=== PATIENT | male | born 1960 | race Caucasian/White ===

== ENCOUNTER 2016-08-03 14:46 | Emergency (ER) | payer MEDICAID ==
[~2016-08-03 14:46] MED LIST: /LOR25TA PO; ATOR40TA PO; CRES20TA OR; CRES5TAB OR; GABA300C3 PO; GABA600T3 PO; IBUP400T PO; IBUP80TA PO; LYRI150C OR; LYRI300C PO; NEXI20CA OR; OMEP40CA2 PO; VICO5TAB16 PO
[2016-08-03 15:51] LABS: BASO % 0.4 % (0.0-1.0); EOS # 0.2 K/mm3 (0.0-0.50); EOS % 2.2 % (0.0-3.0); LARGE UNSTAINED CELL # 0.1 K/mm3 (0.0-0.4); LARGE UNSTAINED CELL % 1.8 % (0.0-4.0); LYMPH # 2.4 K/mm3 (1.5-4.5); LYMPH % 28.3 % (24.0-44.0); MEAN CORPUSCULAR HEMOGLOBIN 32.1 pg (27.0-33.0); MEAN CORPUSCULAR HGB CONC 34.3 g/dl (32.0-36.5); MEAN CORPUSCULAR VOLUME 93.6 fl (80.0-96.0); MONO # 0.6 K/mm3 (0.0-0.8); MONO % 7.3 % (0.0-5.0); NEUTROPHILS # 4.7 K/mm3 (1.8-7.7); NEUTROPHILS % 60.1 % (36.0-66.0); PLATELET COUNT, AUTOMATED 258 k/mm3 (150-450); RED CELL DISTRIBUTION WIDTH 13.7 % (11.5-14.5); WHITE BLOOD COUNT 7.8 K/mm3 (4.0-10.0)
[2016-08-03] MEDS ORDERED: GI COCKTAIL 50ML BTL(HYOSCYAMINE/MAALOX/LIDOCAINE VISCOUS)(1:3:1) As Ordered ONE (15:51)
[2016-08-03] MEDS ORDERED: ASPIRIN 81 MG CHEW TABLET As Ordered ONE (15:51)
--- NOTE | 2016-08-03 15:57 | REP ---
Clinical: Chest pain . Comparison: 05/21/2016. Technique: PA and lateral. Findings: The mediastinum and cardiac silhouette are normal. The lung harden are clear and without acute consolidation, effusion, or pneumothorax. The skeletal structures are intact and normal. Impression: 1. No acute cardiopulmonary process. Signed by Obie Klein MD 08/03/2016 03:49 P
[2016-08-03 15:58] LABS: ANION GAP 7 MEQ/L (8-16); BLOOD UREA NITROGEN 9 MG/DL (7-18); CALCIUM LEVEL 8.9 MG/DL (8.5-10.1); CARBON DIOXIDE LEVEL 28 MEQ/L (21-32); CHLORIDE LEVEL 108 MEQ/L (98-107); CREATININE FOR GFR 0.98 MG/DL (0.70-1.30); GLOMERULAR FILTRATION RATE > 60.0 (>56); GLUCOSE, FASTING 145 MG/DL (70-105); POTASSIUM SERUM 3.4 MEQ/L (3.5-5.1); SODIUM LEVEL 143 MEQ/L (136-145)
--- NOTE | 2016-08-03 16:31 | EDDOCDS ---
Nurse's Notes [facility] Name: Herbert Tanner Age: 55 yrs Sex: Male : 1960 Arrival Date: 08/03/2016 Time: 14:46 Bed 5 Private MD: Meri Barrios C Diagnosis: Chest pain, unspecified Presentation: 08/03 14:54 Presenting complaint: Patient states: Substernal chest pain began yesterday worse at mlb1 times intermittently radiates to left arm. Aspirin was not taken prior to arrival. Adult Sepsis Screening: The patient does not have new or worsening altered mentation. Patient's respiratory rate is less than 22. Systolic blood pressure is greater than 100. Patient has a qSOFA score of 0- Negative Sepsis Screen. Suicide/Homicide risk assessment- the patient denies having any suicidal and/or homicidal ideations and does not present with any other emotional, behavioral or mental health complaints. 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 Transition of care: patient was not received from another setting of care. 14:54 Acuity: DARLENE Level 2 mlb1 14:54 Method Of Arrival: Walkin/Carried/Asstd mlb1 Triage Assessment: 14:59 General: Appears in no apparent distress, Behavior is appropriate for age, cooperative. mlb1 Pain: Location: mid-sternal area Pain currently is 8 out of 10 on a pain scale. HIV screening NA for this visit Offered previously. Historical: - Allergies: none; - Home Meds: 1. gabapentin 800 mg Oral tab 1 tab 3 times per day 2. hydrocodone-acetaminophen 10-325 mg Oral tab 1 tab every 6 hours 3. Lyrica 300MG Oral 2 times per day 4. Motrin Oral 800 mg as needed 5. Ambien 10 mg Oral tab 1 tab once daily 6. atorvastatin 40 mg oral tab 1 tab once daily - PMHx: back pain; DDD; Diverticulitis; GERD; Hypercholesterolemia; Hypertension; - PSHx: none; - Social history: Smoking status: Patient uses tobacco products, heavy tobacco smoker. No barriers to communication noted, The patient speaks fluent Uzbek, Speaks appropriately for age. - : The pt / caregiver states he / she is not on anticoagulants. Home medication list is obtained from the patient. - Exposure Risk Screening:: None identified. Screenin:11 Screening information is obtained from the patient. Fall risk: No risks identified. hs1 Assistance ADL's: requires no assistance with activities of daily living. Abuse/DV Screen: The patient / caregiver reports he/she is: not in a situation that causes fear, pain or injury. Nutritional screening: No deficits noted. Advance Directives: There is no active DNR order. home support is adequate. Assessment: 15:13 General: Behavior is appropriate for age, cooperative. Neurological: Oriented to hs1 person, place, time. Cardiovascular: Rhythm is sinus rhythm No ectopy. Respiratory: Airway is patent Respiratory effort is even, unlabored, Respiratory pattern is regular, symmetrical. Derm: Skin is pink, warm & dry. normal. 16:06 General: Appears in no apparent distress, comfortable, Behavior is appropriate for age, hs1 cooperative. Pain: Location: chest. Cardiovascular: Rhythm is sinus rhythm No ectopy. Respiratory: No deficits noted. Airway is patent Respiratory effort is even, unlabored. Derm: Skin is pink, warm & dry. normal. 16:28 Reassessment: Patient appears in no apparent distress at this time. Patient states hs1 feeling better. Patient states symptoms have improved. Vital Signs: 14:48 BP 123 / 76; Pulse 82; Resp 18 S; Temp 96.3(O); Pulse Ox 96% on R/A; Weight 79.38 kg gr2 (R); Height 5 ft. 10 in. (177.80 cm) (R); Pain 8/10; 14:54 BP 126 / 72 (auto/); hs1 14:58 Pulse 80 MON; Resp 18; Pulse Ox 95% ; hs1 15:09 BP 134 / 75 (auto/); hs1 15:09 Pulse 76 MON; Resp 18; Pulse Ox 93% ; hs1 15:54 BP 133 / 68 (auto/); hs1 15:54 Pulse 74 MON; Pulse Ox 94% ; hs1 16:09 BP 124 / 71 (auto/); hs1 16:09 Pulse 66 MON; Pulse Ox 94% ; hs1 16:24 BP 119 / 68 (auto/); hs1 16:24 Pulse 66 MON; Resp 18; Temp 97.6(O); Pulse Ox 94% ; Pain 2/10; hs1 14:48 Body Mass Index 25.11 (79.38 kg, 177.80 quita) gr2 Vitals: 14:48 Log In Time: August 03, 2016 at 14:48. RN notified that patient meets Red Flag gr2 criteria. ED Course: 14:47 Patient visited by Kirill Landeros. gr2 14:47 Meri Barrios is Private Physician. gr2 14:47 Patient moved to Waiting gr2 14:50 Patient visited by Kirill Landeros. gr2 14:51 Patient moved to 5 mlb1 14:55 Triage Initiated mlb1 15:00 Patient visited by Giovanny Vann RN. mlb1 15:09 Patient visited by Antonio Rodríguze. jml1 15:09 EKG done. (by ED staff). Reviewed by Harinder FLANAGAN. jml1 15:12 Inserted saline lock: 18 gauge in left antecubital area and blood collected. The hs1 patient tolerated the procedure well. 15:22 [facility] F[facility]. ke 15:23 Patient visited by Harinder Raza FNP. ke 15:23 Patient visited by Harinder Raza FNP. ke 15:51 Patient visited by Harinder Raza FNP. ke 15:59 [facility] [place] Agreement was scanned into [employer] and attached to record. gjb 16:05 Patient visited by Carola Martínez RN. hs1 16:20 Meri Barrios is Referral Physician. ke 16:28 Discontinued IV lock intact, bleeding controlled, pressure dressing applied, No hs1 redness/swelling at site. No procedures done that require assistance. 16:29 The patient / caregiver is instructed regarding the plan of care and ED course. hs1 Administered Medications: 15:54 Drug: GI Cocktail - (Alum-Mag Hydroxide-Simeth Suspension 225 mg-200 mg-25 mg/5 mL 30 hs1 ml, Lidocaine Liquid 2 % 10 ml, Hyoscyamine Liquid 10 ml) Route: PO; 15:55 Drug: Aspirin 324 mg [aspirin 81 mg chewable tablet (4 tabs)] Route: PO; hs1 Order Results: Lab Order: Basic Metabolic Profile; SPEC'M 08/03/16 15:06 Test: GLUCOSE, FASTING; Value: 145; Range: 70-105; Abnormal: Above high normal; Units: MG/DL; Status: F Test: BLOOD UREA NITROGEN; Value: 9; Range: 7-18; Units: MG/DL; Status: F Test: CREATININE FOR GFR; Value: 0.98; Range: 0.70-1.30; Units: MG/DL; Status: F Test: GLOMERULAR FILTRATION RATE; Value: > 60.0; Range: >56; Status: F Test: SODIUM LEVEL; Value: 143; Range: 136-145; Units: MEQ/L; Status: F Test: POTASSIUM SERUM; Value: 3.4; Range: 3.5-5.1; Abnormal: Below low normal; Units: MEQ/L; Status: F Test: CHLORIDE LEVEL; Value: 108; Range: 98-107; Abnormal: Above high normal; Units: MEQ/L; Status: F Test: CARBON DIOXIDE LEVEL; Value: 28; Range: 21-32; Units: MEQ/L; Status: F Test: ANION GAP; Value: 7; Range: 8-16; Abnormal: Below low normal; Units: MEQ/L; Status: F Test: CALCIUM LEVEL; Value: 8.9; Range: 8.5-10.1; Units: MG/DL; Status: F Test Note: ; Units are mL/min/1.73 m2 Chronic Kidney Disease Staging per NKF: Stage I & II GFR >=60 Normal to Mildly Decreased Stage III GFR 30-59 Moderately Decreased Stage IV GFR 15-29 Severely Decreased Stage V GFR <15 Very Little GFR Left ESRD GFR <15 on DEBONE SUPERVISOR Lab Order: CBC with Diff; SPEC'M 08/03/16 15:06 Test: WHITE BLOOD COUNT; Value: 7.8; Range: 4.0-10.0; Units: K/mm3; Status: F Test: RED BLOOD COUNT; Value: 4.82; Range: 4.30-6.10; Units: M/mm3; Status: F Test: HEMOGLOBIN; Value: 15.5; Range: 14.0-18.0; Units: g/dl; Status: F Test: HEMATOCRIT; Value: 45.1; Range: 42.0-52.0; Units: %; Status: F Test: MEAN CORPUSCULAR VOLUME; Value: 93.6; Range: 80.0-96.0; Units: fl; Status: F Test: MEAN CORPUSCULAR HEMOGLOBIN; Value: 32.1; Range: 27.0-33.0; Units: pg; Status: F Test: MEAN CORPUSCULAR HGB CONC; Value: 34.3; Range: 32.0-36.5; Units: g/dl; Status: F Test: RED CELL DISTRIBUTION WIDTH; Value: 13.7; Range: 11.5-14.5; Units: %; Status: F Test: PLATELET COUNT, AUTOMATED; Value: 258; Range: 150-450; Units: k/mm3; Status: F Test: NEUTROPHILS %; Value: 60.1; Range: 36.0-66.0; Units: %; Status: F Test: LYMPH %; Value: 28.3; Range: 24.0-44.0; Units: %; Status: F Test: MONO %; Value: 7.3; Range: 0.0-5.0; Abnormal: Above high normal; Units: %; Status: F Test: EOS %; Value: 2.2; Range: 0.0-3.0; Units: %; Status: F Test: BASO %; Value: 0.4; Range: 0.0-1.0; Units: %; Status: F Test: LARGE UNSTAINED CELL %; Value: 1.8; Range: 0.0-4.0; Units: %; Status: F Test: NEUTROPHILS #; Value: 4.7; Range: 1.8-7.7; Units: K/mm3; Status: F Test: LYMPH #; Value: 2.4; Range: 1.5-4.5; Units: K/mm3; Status: F Test: MONO #; Value: 0.6; Range: 0.0-0.8; Units: K/mm3; Status: F Test: EOS #; Value: 0.2; Range: 0.0-0.50; Units: K/mm3; Status: F Test: BASO #; Value: 0.0; Range: 0.0-0.2; Units: K/mm3; Status: F Test: LARGE UNSTAINED CELL #; Value: 0.1; Range: 0.0-0.4; Units: K/mm3; Status: F Lab Order: Cardiac Injury Profile; SPEC'M 08/03/16 15:06 Test: CPK CREATINE PHOSPHOKINASE; Value: 96; Range: 39-308; Units: U/L; Status: F Test: CK-MB VALUE MASS; Value: 1.2; Range: 0.0-3.6; Units: NG/ML; Status: F Test: MB/CK RELATIVE INDEX; Value: 1.25; Range: < OR =4; Status: F Test Note: ; DIAGNOSIS CRITERIA MMB ng/ml Relative Index (RI) NON-AMI < or = 5 N/A AYN ZONE > 5 < or = 4 AMI > 5 > 4 Lab Order: Troponin; SPEC'M 08/03/16 15:06 Test: TROPONIN I; Value: < 0.02; Range: < 0.10; Units: NG/ML; Status: F Test Note: ; Troponin I Reference Interval for [facility] LOCI: 99th Percentile= 0.00-0.045 ng/ml Risk Stratification: <= 0.10 ng/ml Decreased Risk for Adverse Clinical Events. 0.10-1.50 ng/ml Increased Risk for Adverse Clinical Events. Evaluation of additional criterion and/or repeat testing in 2-6 hours is suggested to rule out myocardial damage. >= 1.50 ng/ml Indicative of Myocardial Injury. Outcome: 16:21 Patient left against medical advice. 16:29 Discharge Assessment: Patient awake, alert and oriented x 3. No cognitive and/or hs1 functional deficits noted. Patient verbalized understanding of disposition instructions. patient administered narcotics - no. The following High Risk Discharge criteria are identified: Yes, AMA - explained the risks and benefits. The patient is leaving AMA: AMA form signed. Condition: stable. Discharge instructions given to patient, Instructed on discharge instructions, follow up and referral plans. medication usage, Demonstrated understanding of instructions, medications, Pt was receptive of discharge instructions/ teaching. Prescriptions given X 1. No special radiology studies were completed. Property sent home with patient. 16:30 Patient left the ED. hs1 Signatures: Harinder Raza, ESTHETIC DERMATOLOGIST Giovanny Maloney RN RN mlb1 Carola Martínez RN RN hs1 Anotnio Rodríguez jml1 Kirill Landeros gr2 Joya Kay MTDD
--- NOTE | 2016-08-03 16:31 | EDDOCDS ---
Physician Documentation [facility] Name: Herbert Tanner Age: 55 yrs Sex: Male : 1960 Arrival Date: 08/03/2016 Time: 14:46 Bed 5 Private MD: Meri Barrios C Disposition: 08/03/16 16:21 Patient has left against medical advice. Impression: Chest pain, unspecified. - Patients states they are going to Home/Self Care. - Condition is Unknown. - Discharge Instructions: Nonspecific Chest Pain. - Prescriptions for Aspirin 81 mg - take 1 tablet by ORAL route once daily; 90 tablet. Medication Reconciliation, Local Pharmacy Hours form. Follow up: Meri Barrios; When: Tomorrow; Reason: Continuance of care. - Problem is new. - Symptoms are unchanged. Historical: - Allergies: none; - Home Meds: 1. gabapentin 800 mg Oral tab 1 tab 3 times per day 2. hydrocodone-acetaminophen 10-325 mg Oral tab 1 tab every 6 hours 3. Lyrica 300MG Oral 2 times per day 4. Motrin Oral 800 mg as needed 5. Ambien 10 mg Oral tab 1 tab once daily 6. atorvastatin 40 mg oral tab 1 tab once daily - PMHx: back pain; DDD; Diverticulitis; GERD; Hypercholesterolemia; Hypertension; - PSHx: none; - Social history: Smoking status: Patient uses tobacco products, heavy tobacco smoker. No barriers to communication noted, The patient speaks fluent Welsh, Speaks appropriately for age. - : The pt / caregiver states he / she is not on anticoagulants. Home medication list is obtained from the patient. - Exposure Risk Screening:: None identified. Vital Signs: 08/03 14:48 BP 123 / 76; Pulse 82; Resp 18 S; Temp 96.3(O); Pulse Ox 96% on R/A; Weight 79.38 kg / gr2 175 lbs (R); Height 5 ft. 10 in. (177.80 cm) (R); Pain 8/10; 14:54 BP 126 / 72 (auto/); hs1 14:58 Pulse 80 MON; Resp 18; Pulse Ox 95% ; hs1 15:09 BP 134 / 75 (auto/); hs1 15:09 Pulse 76 MON; Resp 18; Pulse Ox 93% ; hs1 15:54 BP 133 / 68 (auto/); hs1 15:54 Pulse 74 MON; Pulse Ox 94% ; hs1 16:09 BP 124 / 71 (auto/); hs1 16:09 Pulse 66 MON; Pulse Ox 94% ; hs1 16:24 BP 119 / 68 (auto/); hs1 16:24 Pulse 66 MON; Resp 18; Temp 97.6(O); Pulse Ox 94% ; Pain 2/10; hs1 14:48 Body Mass Index 25.11 (79.38 kg, 177.80 cm) gr2 MDM: 15:06 ECG WITH READING ER PHYS+CARDIAG ordered. EDMS 15:35 Aspirin Chewable Tablet 324 mg PO once ordered. ke 15:35 Aviation Project Manager/Pulse Ox/q 30 min VS ordered. ke 15:35 IV Saline Lock ordered. ke 15:35 Rhythm Strip to chart ordered. ke 15:35 Undress patient appropriately for examination ordered. ke 15:35 Basic Metabolic Profile Ordered. EDMS 15:35 CBC with Diff Ordered. EDMS 15:35 Cardiac Injury Profile Ordered. EDMS 15:35 Troponin Ordered. EDMS 15:37 Chest, 2 View (pa\E\lat) Ordered. EDMS 15:38 GI Cocktail - (Alum-Mag Hydroxide-Simeth 30 ml, Lidocaine 10 ml, Hyoscyamine 10 ml) PO ke once; Pre-mixed 50mL unit dose ordered. 15:44 Financial registration complete. gjb 15:59 [facility] Payment Agreement was scanned into [employer] and attached to record. gjb 16:06 Basic Metabolic Profile Reviewed. ke 16:06 CBC with Diff Reviewed. ke 16:06 Cardiac Injury Profile Reviewed. ke 16:06 Troponin Reviewed. ke 16:10 Redraw CIP &Troponin (put time in details section) ordered. ke 16:10 Repeat EKG (put time details section) ordered. ke 16:28 Repeat EKG (put time details section) complete. lbd 16:28 Redraw CIP &Troponin (put time in details section) complete. lbd 16:30 CARDIAC MARKER PANEL Ordered. EDMS Administered Medications: 15:54 Drug: GI Cocktail - (Alum-Mag Hydroxide-Simeth Suspension 225 mg-200 mg-25 mg/5 mL 30 hs1 ml, Lidocaine Liquid 2 % 10 ml, Hyoscyamine Liquid 10 ml) Route: PO; 15:55 Drug: Aspirin 324 mg [aspirin 81 mg chewable tablet (4 tabs)] Route: PO; hs1 Signatures: Dispatcher [employer] EDMS Ana Laura Snyder, Manager Organizational Unit lbd Harinder Raza FNP FNP ke Barney, Michael B RN RN mlb1 Carola Martínez RN RN hs1 Joya Kay The chart was reviewed and I authenticate all verbal orders and agree with the evaluation and treatment provided.Attachments: 15:59 [facility] Payment Agreement litzy MTDD
--- NOTE | 2016-08-03 18:21 | ECGEPIP ---
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
--- NOTE | 2016-08-05 17:31 | EDDOCDS ---
Nurse's Notes [facility] Name: Taran Tanner Age: 55 yrs Sex: Male : 1960 Arrival Date: 08/03/2016 Time: 14:46 Bed 5 Private MD: Meri Barrios C Diagnosis: Chest pain, unspecified Presentation: 08/03 14:54 Presenting complaint: Patient states: Substernal chest pain began yesterday worse at mlb1 times intermittently radiates to left arm. Aspirin was not taken prior to arrival. Adult Sepsis Screening: The patient does not have new or worsening altered mentation. Patient's respiratory rate is less than 22. Systolic blood pressure is greater than 100. Patient has a qSOFA score of 0- Negative Sepsis Screen. Suicide/Homicide risk assessment- the patient denies having any suicidal and/or homicidal ideations and does not present with any other emotional, behavioral or mental health complaints. Status: Patient is not a client service professional or dependent. Transition of care: patient was not received from another setting of care. 14:54 Acuity: DARLENE Level 2 mlb1 14:54 Method Of Arrival: Walkin/Carried/Asstd mlb1 Triage Assessment: 14:59 General: Appears in no apparent distress, Behavior is appropriate for age, cooperative. mlb1 Pain: Location: mid-sternal area Pain currently is 8 out of 10 on a pain scale. HIV screening NA for this visit Offered previously. Historical: - Allergies: none; - Home Meds: 1. gabapentin 800 mg Oral tab 1 tab 3 times per day 2. hydrocodone-acetaminophen 10-325 mg Oral tab 1 tab every 6 hours 3. Lyrica 300MG Oral 2 times per day 4. Motrin Oral 800 mg as needed 5. Ambien 10 mg Oral tab 1 tab once daily 6. atorvastatin 40 mg oral tab 1 tab once daily - PMHx: back pain; DDD; Diverticulitis; GERD; Hypercholesterolemia; Hypertension; - PSHx: none; - Social history: Smoking status: Patient uses tobacco products, heavy tobacco smoker. No barriers to communication noted, The patient speaks fluent Mauritian, Speaks appropriately for age. - : The pt / caregiver states he / she is not on anticoagulants. Home medication list is obtained from the patient. - Exposure Risk Screening:: None identified. Screenin:11 Screening information is obtained from the patient. Fall risk: No risks identified. hs1 Assistance ADL's: requires no assistance with activities of daily living. Abuse/DV Screen: The patient / caregiver reports he/she is: not in a situation that causes fear, pain or injury. Nutritional screening: No deficits noted. Advance Directives: There is no active DNR order. home support is adequate. Assessment: 15:13 General: Behavior is appropriate for age, cooperative. Neurological: Oriented to hs1 person, place, time. Cardiovascular: Rhythm is sinus rhythm No ectopy. Respiratory: Airway is patent Respiratory effort is even, unlabored, Respiratory pattern is regular, symmetrical. Derm: Skin is pink, warm & dry. normal. 16:06 General: Appears in no apparent distress, comfortable, Behavior is appropriate for age, hs1 cooperative. Pain: Location: chest. Cardiovascular: Rhythm is sinus rhythm No ectopy. Respiratory: No deficits noted. Airway is patent Respiratory effort is even, unlabored. Derm: Skin is pink, warm & dry. normal. 16:28 Reassessment: Patient appears in no apparent distress at this time. Patient states hs1 feeling better. Patient states symptoms have improved. Vital Signs: 14:48 BP 123 / 76; Pulse 82; Resp 18 S; Temp 96.3(O); Pulse Ox 96% on R/A; Weight 79.38 kg gr2 (R); Height 5 ft. 10 in. (177.80 cm) (R); Pain 8/10; 14:54 BP 126 / 72 (auto/); hs1 14:58 Pulse 80 MON; Resp 18; Pulse Ox 95% ; hs1 15:09 BP 134 / 75 (auto/); hs1 15:09 Pulse 76 MON; Resp 18; Pulse Ox 93% ; hs1 15:54 BP 133 / 68 (auto/); hs1 15:54 Pulse 74 MON; Pulse Ox 94% ; hs1 16:09 BP 124 / 71 (auto/); hs1 16:09 Pulse 66 MON; Pulse Ox 94% ; hs1 16:24 BP 119 / 68 (auto/); hs1 16:24 Pulse 66 MON; Resp 18; Temp 97.6(O); Pulse Ox 94% ; Pain 2/10; hs1 14:48 Body Mass Index 25.11 (79.38 kg, 177.80 cm) gr2 Vitals: 14:48 Log In Time: August 03, 2016 at 14:48. RN notified that patient meets Red Flag gr2 criteria. ED Course: 14:47 Patient visited by Kirill Landeros. gr2 14:47 Meri Barrios is Private Physician. gr2 14:47 Patient moved to Waiting gr2 14:50 Patient visited by Kirill Landeros. gr2 14:51 Patient moved to 5 mlb1 14:55 Triage Initiated mlb1 15:00 Patient visited by Giovanny Vann RN. mlb1 15:09 Patient visited by Antonio Rodríguez. jml1 15:09 EKG done. (by ED staff). Reviewed by Harinder FLANAGAN. jml1 15:12 Inserted saline lock: 18 gauge in left antecubital area and blood collected. The hs1 patient tolerated the procedure well. 15:22 [facility] F[facility]. ke 15:23 Patient visited by Harinder Raza FNP. ke 15:23 Patient visited by Harinder Raza FNP. ke 15:51 Patient visited by Harinder Raza FNP. ke 15:59 [facility] Payment Agreement was scanned into [employer] and attached to record. gjb 16:05 Patient visited by Carola Martínez RN. hs1 16:20 Meri Barrios is Referral Physician. ke 16:28 Discontinued IV lock intact, bleeding controlled, pressure dressing applied, No hs1 redness/swelling at site. No procedures done that require assistance. 16:29 The patient / caregiver is instructed regarding the plan of care and ED course. hs1 16:37 Chest, 2 View (pa\E\lat) Returned. EDMS 19:02 EKG-ADULT Returned. EDMS 08/04 10:02 Refusal of Services was scanned into [employer] and attached to record. gb 10:02 T-Sheet-- Draft Copy was scanned into [employer] and attached to record. gb 10:02 ECG/EKG was scanned into [employer] and attached to record. gb 10:04 Trend VS was scanned into [employer] and attached to record. gb Administered Medications: 08/03 15:54 Drug: GI Cocktail - (Alum-Mag Hydroxide-Simeth Suspension 225 mg-200 mg-25 mg/5 mL 30 hs1 ml, Lidocaine Liquid 2 % 10 ml, Hyoscyamine Liquid 10 ml) Route: PO; 15:55 Drug: Aspirin 324 mg [aspirin 81 mg chewable tablet (4 tabs)] Route: PO; hs1 Attachments: 08/04 10:02 Refusal of Services 10:04 Trend VS gb Order Results: Lab Order: Basic Metabolic Profile; SPEC'M 08/03/16 15:06 Test: GLUCOSE, FASTING; Value: 145; Range: 70-105; Abnormal: Above high normal; Units: MG/DL; Status: F Test: BLOOD UREA NITROGEN; Value: 9; Range: 7-18; Units: MG/DL; Status: F Test: CREATININE FOR GFR; Value: 0.98; Range: 0.70-1.30; Units: MG/DL; Status: F Test: GLOMERULAR FILTRATION RATE; Value: > 60.0; Range: >56; Status: F Test: SODIUM LEVEL; Value: 143; Range: 136-145; Units: MEQ/L; Status: F Test: POTASSIUM SERUM; Value: 3.4; Range: 3.5-5.1; Abnormal: Below low normal; Units: MEQ/L; Status: F Test: CHLORIDE LEVEL; Value: 108; Range: 98-107; Abnormal: Above high normal; Units: MEQ/L; Status: F Test: CARBON DIOXIDE LEVEL; Value: 28; Range: 21-32; Units: MEQ/L; Status: F Test: ANION GAP; Value: 7; Range: 8-16; Abnormal: Below low normal; Units: MEQ/L; Status: F Test: CALCIUM LEVEL; Value: 8.9; Range: 8.5-10.1; Units: MG/DL; Status: F Test Note: ; Units are mL/min/1.73 m2 Chronic Kidney Disease Staging per NKF: Stage I & II GFR >=60 Normal to Mildly Decreased Stage III GFR 30-59 Moderately Decreased Stage IV GFR 15-29 Severely Decreased Stage V GFR <15 Very Little GFR Left ESRD GFR <15 on STROBOROMA OPERATOR Lab Order: CBC with Diff; SPEC'M 08/03/16 15:06 Test: WHITE BLOOD COUNT; Value: 7.8; Range: 4.0-10.0; Units: K/mm3; Status: F Test: RED BLOOD COUNT; Value: 4.82; Range: 4.30-6.10; Units: M/mm3; Status: F Test: HEMOGLOBIN; Value: 15.5; Range: 14.0-18.0; Units: g/dl; Status: F Test: HEMATOCRIT; Value: 45.1; Range: 42.0-52.0; Units: %; Status: F Test: MEAN CORPUSCULAR VOLUME; Value: 93.6; Range: 80.0-96.0; Units: fl; Status: F Test: MEAN CORPUSCULAR HEMOGLOBIN; Value: 32.1; Range: 27.0-33.0; Units: pg; Status: F Test: MEAN CORPUSCULAR HGB CONC; Value: 34.3; Range: 32.0-36.5; Units: g/dl; Status: F Test: RED CELL DISTRIBUTION WIDTH; Value: 13.7; Range: 11.5-14.5; Units: %; Status: F Test: PLATELET COUNT, AUTOMATED; Value: 258; Range: 150-450; Units: k/mm3; Status: F Test: NEUTROPHILS %; Value: 60.1; Range: 36.0-66.0; Units: %; Status: F Test: LYMPH %; Value: 28.3; Range: 24.0-44.0; Units: %; Status: F Test: MONO %; Value: 7.3; Range: 0.0-5.0; Abnormal: Above high normal; Units: %; Status: F Test: EOS %; Value: 2.2; Range: 0.0-3.0; Units: %; Status: F Test: BASO %; Value: 0.4; Range: 0.0-1.0; Units: %; Status: F Test: LARGE UNSTAINED CELL %; Value: 1.8; Range: 0.0-4.0; Units: %; Status: F Test: NEUTROPHILS #; Value: 4.7; Range: 1.8-7.7; Units: K/mm3; Status: F Test: LYMPH #; Value: 2.4; Range: 1.5-4.5; Units: K/mm3; Status: F Test: MONO #; Value: 0.6; Range: 0.0-0.8; Units: K/mm3; Status: F Test: EOS #; Value: 0.2; Range: 0.0-0.50; Units: K/mm3; Status: F Test: BASO #; Value: 0.0; Range: 0.0-0.2; Units: K/mm3; Status: F Test: LARGE UNSTAINED CELL #; Value: 0.1; Range: 0.0-0.4; Units: K/mm3; Status: F Lab Order: Cardiac Injury Profile; [facility] 08/03/16 15:06 Test: CPK CREATINE PHOSPHOKINASE; Value: 96; Range: 39-308; Units: U/L; Status: F Test: CK-MB VALUE MASS; Value: 1.2; Range: 0.0-3.6; Units: NG/ML; Status: F Test: MB/CK RELATIVE INDEX; Value: 1.25; Range: < OR =4; Status: F Test Note: ; DIAGNOSIS CRITERIA MMB ng/ml Relative Index (RI) NON-AMI < or = 5 N/A YAN ZONE > 5 < or = 4 AMI > 5 > 4 Lab Order: Troponin; [facility] 08/03/16 15:06 Test: TROPONIN I; Value: < 0.02; Range: < 0.10; Units: NG/ML; Status: F Test Note: ; Troponin I Reference Interval for meebee LOCI: 99th Percentile= 0.00-0.045 ng/ml Risk Stratification: <= 0.10 ng/ml Decreased Risk for Adverse Clinical Events. 0.10-1.50 ng/ml Increased Risk for Adverse Clinical Events. Evaluation of additional criterion and/or repeat testing in 2-6 hours is suggested to rule out myocardial damage. >= 1.50 ng/ml Indicative of Myocardial Injury. 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 The lung harden are clear and; without acute consolidation, effusion, or pneumothorax. The skeletal structures; are intact and normal.; ; Impression:; 1. No acute cardiopulmonary process.; ; ; Signed by; Obie Klein MD 08/03/2016 03:49 P; Outcome: 08/03 16:21 Patient left against medical advice. 16:29 Discharge Assessment: Patient awake, alert and oriented x 3. No cognitive and/or hs1 functional deficits noted. Patient verbalized understanding of disposition instructions. patient administered narcotics - no. The following High Risk Discharge criteria are identified: Yes, AMA - explained the risks and benefits. The patient is leaving AMA: AMA form signed. Condition: stable. Discharge instructions given to patient, Instructed on discharge instructions, follow up and referral plans. medication usage, Demonstrated understanding of instructions, medications, Pt was receptive of discharge instructions/ teaching. Prescriptions given X 1. No special radiology studies were completed. Property sent home with patient. 16:30 Patient left the ED. hs1 Signatures: Dispatcher [employer] EDMS Cammie Hall, Reg Reg Harinder Hurd, CARTON INSPECTOR CARTON INSPECTOR Giovanny Prakash RN RN mlb1 Carola Martínez RN RN hs1 Antonio Rodríguez Gainslee gr2 Joya Kay Chart Complete MTDD
--- NOTE | 2016-08-05 17:31 | EDDOCDS ---
Physician Documentation [facility] Name: Herbert Tanner Age: 55 yrs Sex: Male : 1960 Arrival Date: 08/03/2016 Time: 14:46 Bed 5 Private MD: Meri Barrios C Disposition: 08/03/16 16:21 Patient has left against medical advice. Impression: Chest pain, unspecified. - Patients states they are going to Home/Self Care. - Condition is Unknown. - Discharge Instructions: Nonspecific Chest Pain. - Prescriptions for Aspirin 81 mg - take 1 tablet by ORAL route once daily; 90 tablet. Medication Reconciliation, Local Pharmacy Hours form. Follow up: Meri Barrios; When: Tomorrow; Reason: Continuance of care. - Problem is new. - Symptoms are unchanged. Historical: - Allergies: none; - Home Meds: 1. gabapentin 800 mg Oral tab 1 tab 3 times per day 2. hydrocodone-acetaminophen 10-325 mg Oral tab 1 tab every 6 hours 3. Lyrica 300MG Oral 2 times per day 4. Motrin Oral 800 mg as needed 5. Ambien 10 mg Oral tab 1 tab once daily 6. atorvastatin 40 mg oral tab 1 tab once daily - PMHx: back pain; DDD; Diverticulitis; GERD; Hypercholesterolemia; Hypertension; - PSHx: none; - Social history: Smoking status: Patient uses tobacco products, heavy tobacco smoker. No barriers to communication noted, The patient speaks fluent Syriac, Speaks appropriately for age. - : The pt / caregiver states he / she is not on anticoagulants. Home medication list is obtained from the patient. - Exposure Risk Screening:: None identified. Vital Signs: 08/03 14:48 BP 123 / 76; Pulse 82; Resp 18 S; Temp 96.3(O); Pulse Ox 96% on R/A; Weight 79.38 kg / gr2 175 lbs (R); Height 5 ft. 10 in. (177.80 cm) (R); Pain 8/10; 14:54 BP 126 / 72 (auto/); hs1 14:58 Pulse 80 MON; Resp 18; Pulse Ox 95% ; hs1 15:09 BP 134 / 75 (auto/); hs1 15:09 Pulse 76 MON; Resp 18; Pulse Ox 93% ; hs1 15:54 BP 133 / 68 (auto/); hs1 15:54 Pulse 74 MON; Pulse Ox 94% ; hs1 16:09 BP 124 / 71 (auto/); hs1 16:09 Pulse 66 MON; Pulse Ox 94% ; hs1 16:24 BP 119 / 68 (auto/); hs1 16:24 Pulse 66 MON; Resp 18; Temp 97.6(O); Pulse Ox 94% ; Pain 2/10; hs1 14:48 Body Mass Index 25.11 (79.38 kg, 177.80 cm) gr2 MDM: 15:06 ECG WITH READING ER PHYS+CARDIAG ordered. EDMS 15:35 Aspirin Chewable Tablet 324 mg PO once ordered. ke 15:35 Section Maintainer/Pulse Ox/q 30 min VS ordered. ke 15:35 IV Saline Lock ordered. ke 15:35 Rhythm Strip to chart ordered. ke 15:35 Undress patient appropriately for examination ordered. ke 15:35 Basic Metabolic Profile Ordered. EDMS 15:35 CBC with Diff Ordered. EDMS 15:35 Cardiac Injury Profile Ordered. EDMS 15:35 Troponin Ordered. EDMS 15:37 Chest, 2 View (pa\E\lat) Ordered. EDMS 15:38 GI Cocktail - (Alum-Mag Hydroxide-Simeth 30 ml, Lidocaine 10 ml, Hyoscyamine 10 ml) PO ke once; Pre-mixed 50mL unit dose ordered. 15:44 Financial registration complete. gjb 15:59 [facility] Payment Agreement was scanned into [employer] and attached to record. gjb 16:06 Basic Metabolic Profile Reviewed. ke 16:06 CBC with Diff Reviewed. ke 16:06 Cardiac Injury Profile Reviewed. ke 16:06 Troponin Reviewed. ke 16:10 Redraw CIP &Troponin (put time in details section) ordered. ke 16:10 Repeat EKG (put time details section) ordered. ke 16:28 Repeat EKG (put time details section) complete. lbd 16:28 Redraw CIP &Troponin (put time in details section) complete. lbd 16:30 CARDIAC MARKER PANEL Ordered. EDMS 16:32 ECG WITH READING ER PHYS ordered. EDMS 08/04 10:02 Refusal of Services was scanned into [employer] and attached to record. gb 10:02 T-Sheet-- Draft Copy was scanned into [employer] and attached to record. gb 10:02 ECG/EKG was scanned into [employer] and attached to record. gb 10:04 Trend VS was scanned into [employer] and attached to record. gb Administered Medications: 08/03 15:54 Drug: GI Cocktail - (Alum-Mag Hydroxide-Simeth Suspension 225 mg-200 mg-25 mg/5 mL 30 hs1 ml, Lidocaine Liquid 2 % 10 ml, Hyoscyamine Liquid 10 ml) Route: PO; 15:55 Drug: Aspirin 324 mg [aspirin 81 mg chewable tablet (4 tabs)] Route: PO; hs1 Signatures: Dispatcher [employer] EDMS Ana Laura Snyder, Medic Technician Unit lbd Cammie Hall, Reg Reg gb Harinder Raza, EXECUTIVE PRODUCER EXECUTIVE PRODUCER Giovanny Prakash RN RN mlb1 Carola Martínez RN RN hs1 Joya Kay The chart was reviewed and I authenticate all verbal orders and agree with the evaluation and treatment provided.Attachments: 15:59 [facility] Payment Agreement litzy 10:02 T-Sheet-- Draft Copy gb 10:02 ECG/EKG Chart Complete MTDD
--- NOTE | 2016-08-05 17:31 | EDDOCDS ---
Physician Documentation [facility] Name: Herbert Tanner Age: 55 yrs Sex: Male : 1960 Arrival Date: 08/03/2016 Time: 14:46 Bed 5 Private MD: Meri Barrios C Disposition: 08/03/16 16:21 Patient has left against medical advice. Impression: Chest pain, unspecified. - Patients states they are going to Home/Self Care. - Condition is Unknown. - Discharge Instructions: Nonspecific Chest Pain. - Prescriptions for Aspirin 81 mg - take 1 tablet by ORAL route once daily; 90 tablet. Medication Reconciliation, Local Pharmacy Hours form. Follow up: Meri Barrios; When: Tomorrow; Reason: Continuance of care. - Problem is new. - Symptoms are unchanged. Historical: - Allergies: none; - Home Meds: 1. gabapentin 800 mg Oral tab 1 tab 3 times per day 2. hydrocodone-acetaminophen 10-325 mg Oral tab 1 tab every 6 hours 3. Lyrica 300MG Oral 2 times per day 4. Motrin Oral 800 mg as needed 5. Ambien 10 mg Oral tab 1 tab once daily 6. atorvastatin 40 mg oral tab 1 tab once daily - PMHx: back pain; DDD; Diverticulitis; GERD; Hypercholesterolemia; Hypertension; - PSHx: none; - Social history: Smoking status: Patient uses tobacco products, heavy tobacco smoker. No barriers to communication noted, The patient speaks fluent Wolof, Speaks appropriately for age. - : The pt / caregiver states he / she is not on anticoagulants. Home medication list is obtained from the patient. - Exposure Risk Screening:: None identified. Vital Signs: 08/03 14:48 BP 123 / 76; Pulse 82; Resp 18 S; Temp 96.3(O); Pulse Ox 96% on R/A; Weight 79.38 kg / gr2 175 lbs (R); Height 5 ft. 10 in. (177.80 cm) (R); Pain 8/10; 14:54 BP 126 / 72 (auto/); hs1 14:58 Pulse 80 MON; Resp 18; Pulse Ox 95% ; hs1 15:09 BP 134 / 75 (auto/); hs1 15:09 Pulse 76 MON; Resp 18; Pulse Ox 93% ; hs1 15:54 BP 133 / 68 (auto/); hs1 15:54 Pulse 74 MON; Pulse Ox 94% ; hs1 16:09 BP 124 / 71 (auto/); hs1 16:09 Pulse 66 MON; Pulse Ox 94% ; hs1 16:24 BP 119 / 68 (auto/); hs1 16:24 Pulse 66 MON; Resp 18; Temp 97.6(O); Pulse Ox 94% ; Pain 2/10; hs1 14:48 Body Mass Index 25.11 (79.38 kg, 177.80 cm) gr2 MDM: 15:06 ECG WITH READING ER PHYS+CARDIAG ordered. EDMS 15:35 Aspirin Chewable Tablet 324 mg PO once ordered. ke 15:35 Child Care Attendant/Pulse Ox/q 30 min VS ordered. ke 15:35 IV Saline Lock ordered. ke 15:35 Rhythm Strip to chart ordered. ke 15:35 Undress patient appropriately for examination ordered. ke 15:35 Basic Metabolic Profile Ordered. EDMS 15:35 CBC with Diff Ordered. EDMS 15:35 Cardiac Injury Profile Ordered. EDMS 15:35 Troponin Ordered. EDMS 15:37 Chest, 2 View (pa\E\lat) Ordered. EDMS 15:38 GI Cocktail - (Alum-Mag Hydroxide-Simeth 30 ml, Lidocaine 10 ml, Hyoscyamine 10 ml) PO ke once; Pre-mixed 50mL unit dose ordered. 15:44 Financial registration complete. gjb 15:59 [facility] Payment Agreement was scanned into [employer] and attached to record. gjb 16:06 Basic Metabolic Profile Reviewed. ke 16:06 CBC with Diff Reviewed. ke 16:06 Cardiac Injury Profile Reviewed. ke 16:06 Troponin Reviewed. ke 16:10 Redraw CIP &Troponin (put time in details section) ordered. ke 16:10 Repeat EKG (put time details section) ordered. ke 16:28 Repeat EKG (put time details section) complete. lbd 16:28 Redraw CIP &Troponin (put time in details section) complete. lbd 16:30 CARDIAC MARKER PANEL Ordered. EDMS 16:32 ECG WITH READING ER PHYS ordered. EDMS 08/04 10:02 Refusal of Services was scanned into [employer] and attached to record. gb 10:02 T-Sheet-- Draft Copy was scanned into [employer] and attached to record. gb 10:02 ECG/EKG was scanned into [employer] and attached to record. gb 10:04 Trend VS was scanned into [employer] and attached to record. gb Administered Medications: 08/03 15:54 Drug: GI Cocktail - (Alum-Mag Hydroxide-Simeth Suspension 225 mg-200 mg-25 mg/5 mL 30 hs1 ml, Lidocaine Liquid 2 % 10 ml, Hyoscyamine Liquid 10 ml) Route: PO; 15:55 Drug: Aspirin 324 mg [aspirin 81 mg chewable tablet (4 tabs)] Route: PO; hs1 Signatures: Dispatcher [employer] EDMS Ana Laura Snyder, Steel Tester Unit lbd Cammie Hall, Reg Reg gb Harinder Raza, FORK OPERATOR FORK OPERATOR Giovanny Prakash RN RN mlb1 Carola Martínez RN RN hs1 Joya Kay The chart was reviewed and I authenticate all verbal orders and agree with the evaluation and treatment provided.Attachments: 15:59 [facility] Payment Agreement litzy 10:02 T-Sheet-- Draft Copy gb 10:02 ECG/EKG Chart Complete MTDD
== END 2016-08-03 16:30 | disposition left against medical advice (07) ==
LOC: M ED 14:46
DX: R07.89 Other chest pain (principal); M54.9 Dorsalgia, unspecified; M51.9 Unspecified thoracic, thoracolumbar and lumbosacral intervertebral disc disorder; K57.30 Diverticulosis of large intestine without perforation or abscess without bleeding; K21.9 Gastro-esophageal reflux disease without esophagitis; E78.00 Pure hypercholesterolemia, unspecified; I10 Essential (primary) hypertension; Z72.0 Tobacco use; Z79.899 Other long term (current) drug therapy

== ENCOUNTER → 2016-09-02 | Outpatient (CLI) | payer MEDICAID ==
[2016-09-02 12:04] LABS: BASO % 0.4 % (0.0-1.0); EOS # 0.1 K/mm3 (0.0-0.50); EOS % 1.8 % (0.0-3.0); LYMPH # 2.6 K/mm3 (1.5-4.5); LYMPH % 31.1 % (24.0-44.0); MEAN CORPUSCULAR HEMOGLOBIN 31.1 pg (27.0-33.0); MEAN CORPUSCULAR HGB CONC 33.6 g/dl (32.0-36.5); MEAN CORPUSCULAR VOLUME 92.5 fl (80.0-96.0); MONO # 0.9 K/mm3 (0.0-0.8); MONO % 11.1 % (0.0-5.0); NEUTROPHILS # 4.2 K/mm3 (1.8-7.7); NEUTROPHILS % 53.2 % (36.0-66.0); RED CELL DISTRIBUTION WIDTH 13.6 % (11.5-14.5); WHITE BLOOD COUNT 7.8 K/mm3 (4.0-10.0)
[2016-09-02 13:01] LABS: ALBUMIN/GLOBULIN RATIO 1.14 (1.00-1.93); ALKALINE PHOSPHATASE 167 U/L (45-117); ALT/SGPT 44 U/L (12-78); ANION GAP 10 MEQ/L (8-16); AST/SGOT 22 U/L (15-37); BILIRUBIN,TOTAL 0.4 MG/DL (0.2-1.0); BLOOD UREA NITROGEN 14 MG/DL (7-18); CALCIUM LEVEL 9.2 MG/DL (8.5-10.1); CARBON DIOXIDE LEVEL 26 MEQ/L (21-32); CHLORIDE LEVEL 105 MEQ/L (98-107); CREATININE FOR GFR 0.91 MG/DL (0.70-1.30); FERRITIN 116 NG/ML (26-388); GLOMERULAR FILTRATION RATE > 60.0 (>56); GLUCOSE, FASTING 106 MG/DL (70-105); MAGNESIUM LEVEL 2.6 MG/DL (1.8-2.4); PHOSPHORUS LEVEL 3.3 MG/DL (2.5-4.9); POTASSIUM SERUM 4.7 MEQ/L (3.5-5.1); SODIUM LEVEL 141 MEQ/L (136-145); TOTAL PROTEIN 7.5 GM/DL (6.4-8.2)
[2016-09-02 13:26] LABS: FOLATE 7.6 NG/ML; VITAMIN B12 LEVEL 418 PG/ML
--- NOTE | 2016-09-02 18:40 | ECGEPIP ---
Stationary ECG Study [facility] Test Date: 2016-09-02 Pat Name: TARAN MUÑOZ Department: Room: - Gender: M [place] Pilot: ANGY : 1960 Requested By: Meri Whitaker Order Number: [id number] Reading MD: Telly Jones Measurements Intervals [place] Rate: 67 P: 58 CA: 123 QRS: 45 QRSD: 94 T: 66 QT: 398 QTc: 420 Interpretive Statements SINUS RHYTHM COMPARED TO THE LAST TRACING ON 08/03/2016 AT 15:03:31, NO SIGNIFICANT CHANGES Electronically Signed On 09-02-2016 18:39:55 EDT by Telly Jones
[2016-09-04 00:06] LABS: Lyme Disease IgG/IgM Antibodie <0.91 ISR (0.00-0.90); Lyme Disease IgM Ab Quantitati <0.80 index (0.00-0.79)
== END ==
LOC: M LAB 10:58
PROVIDERS: ATTEND Physician Assistant Medical
DX: R53.83 Other fatigue (principal); R07.89 Other chest pain

== ENCOUNTER → 2016-11-08 | Outpatient (CLI) | payer MEDICAID ==
[~2016-11-08] MED LIST changes: +GABA-282 PO; -GABA300C3 PO
[2016-11-08 10:31] LABS: THYROXINE (T4) 10.5 UG/DL (4.5-12.0)
[2016-11-09 08:11] LABS: T3 RESIN UPTAKE 25 % (24-39)
== END ==
LOC: M LAB 09:13
PROVIDERS: ATTEND Physician Assistant Medical
DX: R07.89 Other chest pain (principal)

== ENCOUNTER → 2016-11-08 | Outpatient (CLI) | payer MEDICAID ==
[2016-11-08 10:07] LABS: BASO % 0.6 % (0.0-1.0); EOS # 0.2 K/mm3 (0.0-0.50); EOS % 1.8 % (0.0-3.0); LARGE UNSTAINED CELL # 0.1 K/mm3 (0.0-0.4); LARGE UNSTAINED CELL % 1.6 % (0.0-4.0); LYMPH # 2.6 K/mm3 (1.5-4.5); MEAN CORPUSCULAR HEMOGLOBIN 31.1 pg (27.0-33.0); MEAN CORPUSCULAR HGB CONC 33.7 g/dl (32.0-36.5); MEAN CORPUSCULAR VOLUME 92.2 fl (80.0-96.0); MONO # 0.7 K/mm3 (0.0-0.8); MONO % 8.4 % (0.0-5.0); NEUTROPHILS % 58.6 % (36.0-66.0); PLATELET COUNT, AUTOMATED 276 k/mm3 (150-450); RED CELL DISTRIBUTION WIDTH 13.6 % (11.5-14.5); WHITE BLOOD COUNT 8.5 K/mm3 (4.0-10.0)
[2016-11-08 10:21] LABS: ANION GAP 3 MEQ/L (8-16); BLOOD UREA NITROGEN 9 MG/DL (7-18); CALCIUM LEVEL 9.2 MG/DL (8.5-10.1); CARBON DIOXIDE LEVEL 34 MEQ/L (21-32); CHLORIDE LEVEL 106 MEQ/L (98-107); CREATININE FOR GFR 0.92 MG/DL (0.70-1.30); GLOMERULAR FILTRATION RATE > 60.0 (>56); GLUCOSE, FASTING 94 MG/DL (70-105); POTASSIUM SERUM 4.3 MEQ/L (3.5-5.1); SODIUM LEVEL 143 MEQ/L (136-145)
== END ==
LOC: M LAB 09:18
PROVIDERS: ATTEND Internal Medicine Cardiovascular Disease
DX: R07.9 Chest pain, unspecified (principal); I10 Essential (primary) hypertension

== ENCOUNTER → 2016-11-11 | Outpatient (CLI) | payer MEDICAID ==
--- NOTE | 2016-11-11 09:38 | REP ---
MRI LUMBAR SPINE WITHOUT CONTRAST: HISTORY: Back pain. COMPARISON: 11/03/2015 Decreased signal intensity on T2-weighted images is present in the T12-L1 through L2-3 and L4-5 levels. The discs are decreased in height. These findings are consistent with disc degeneration. There is no disc bulge or herniation at the L1-2 level. The L1 nerves exit the neural foramina without compression. A diffuse disc bulge is present at the L2-3 level. There is minimal compression of the thecal sac. There is hypertrophy of the posterior articulating facets. The L2 nerves exit the neural foramina without compression. A diffuse disc bulge is present at the L3-4 level. There is minimal compression of the thecal sac. There is hypertrophy of the posterior articulating facets. The L3 nerves exit the neural foramina without compression. A diffuse disc bulge and small central disc protrusion are present at the L4-5 level. There is hypertrophy of the ligamenta flava and posterior articulating facets. These findings produce moderate central canal stenosis. The L4 nerves exit the neural foramina without compression. A diffuse disc bulge is present at the L5-S1 level. There is no thecal sac compression. There is hypertrophy of the posterior articulating facets. The L5 nerves exit the neural foramina without compression. There is partial sacralization of the L5 vertebral body. The conus medullaris is normal in appearance terminating at the level of the T12-L1 intervertebral disc. A hemangioma is present in the T12 vertebral body. Normal signal intensity is present in the lumbar vertebral bodies. IMPRESSION: 1. Diffuse disc bulges at the L2-3 and L3-4 levels with minimal thecal sac compression. 2. Moderate central canal stenosis at the L4-5 level secondary to disc bulge, disc protrusion, ligamentous and facet hypertrophy. 3. Diffuse disc bulge at the L5-S1 level without thecal sac compression. There is no significant change compared to the previous study. Signed by Rusty Jacobsen MD 11/11/2016 09:43 A
== END ==
LOC: M RAD 07:00
PROVIDERS: ATTEND Physician Assistant Medical
DX: M54.5 Low back pain (principal)

== ENCOUNTER 2017-02-18 12:10 | Emergency (ER) | payer MEDICAID, OTHER ==
[~2017-02-18] VITALS: Ht 180.3 cm; Wt 81.8 kg
[~2017-02-18 12:10] MED LIST changes: -ATOR40TA PO; +ATOR40TA75 PO
[2017-02-18] MEDS ORDERED: CLOP75TA2 PO (12:35)
[2017-02-18] MEDS ORDERED: BISO5TAB5 PO (12:35)
[2017-02-18] MEDS ORDERED: ZOLP10TA2 PO (12:35)
[2017-02-18] MEDS ORDERED: GABA-283 PO (12:35)
[2017-02-18] MEDS ORDERED: ALBU17IN INH (12:35)
[2017-02-18] MEDS ORDERED: LISI10TA4 PO (12:35)
[2017-02-18] MEDS ORDERED: TIZA4CAP3 PO (12:35)
[2017-02-18] MEDS ORDERED: SIMV80TA PO (12:35)
[2017-02-18] MEDS: ASPIRIN 81 MG CHEW TABLET PO ONE ×2 (13:00→13:16)
[2017-02-18 13:20] LABS: BASO # 0.1 K/mm3 (0.0-0.2); BASO % 0.8 % (0.0-1.0); EOS # 0.2 K/mm3 (0.0-0.50); EOS % 1.6 % (0.0-3.0); LARGE UNSTAINED CELL # 0.2 K/mm3 (0.0-0.4); LARGE UNSTAINED CELL % 2.3 % (0.0-4.0); LYMPH # 2.5 K/mm3 (1.5-4.5); LYMPH % 26.7 % (24.0-44.0); MEAN CORPUSCULAR HEMOGLOBIN 31.5 pg (27.0-33.0); MEAN CORPUSCULAR HGB CONC 35.4 g/dl (32.0-36.5); MEAN CORPUSCULAR VOLUME 89.2 fl (80.0-96.0); MONO % 10.5 % (0.0-5.0); NEUTROPHILS # 5.4 K/mm3 (1.8-7.7); NEUTROPHILS % 58.1 % (36.0-66.0); PLATELET COUNT, AUTOMATED 290 k/mm3 (150-450); RED CELL DISTRIBUTION WIDTH 13.3 % (11.5-14.5); WHITE BLOOD COUNT 9.3 K/mm3 (4.0-10.0)
[2017-02-18] MEDS ORDERED: KETOROLAC 30 MG/ML VIAL (J1885) IV ONE (13:30)
[2017-02-18 13:45] LABS: ANION GAP 6 MEQ/L (8-16); BLOOD UREA NITROGEN 11 MG/DL (7-18); CALCIUM LEVEL 9.1 MG/DL (8.5-10.1); CARBON DIOXIDE LEVEL 29 MEQ/L (21-32); CHLORIDE LEVEL 103 MEQ/L (98-107); CREATININE FOR GFR 1.11 MG/DL (0.70-1.30); GLOMERULAR FILTRATION RATE > 60.0 (>56); GLUCOSE, FASTING 91 MG/DL (70-105); POTASSIUM SERUM 4.1 MEQ/L (3.5-5.1); SODIUM LEVEL 138 MEQ/L (136-145)
--- NOTE | 2017-02-18 13:47 | REP ---
Clinical: Chest pain . Comparison: 08/03/2016 . Findings: The mediastinum and cardiac silhouette are stable and within normal limits for portable technique. The lung harden are clear without acute consolidation, effusion, or pneumothorax. Skeletal structures are intact. Impression: No acute cardiopulmonary process appreciated. Signed by Obie Klein MD 02/18/2017 01:39 P
--- NOTE | 2017-02-18 14:10 | REP ---
Clinical: Left lower extremity pain . Technique: Gonzalez scale and color Doppler evaluation using linear high frequency transducer. Findings: Ultrasound examination of the left lower extremity deep venous structures from the common femoral vein to the popliteal vein demonstrates normal compressibility flow and wave patterns in response to respiration and augmentation. There is no evidence for deep venous thrombosis. Impression: No evidence for deep venous thrombosis. Signed by Obie Klein MD 02/18/2017 02:02 P
[2017-02-18] MEDS ORDERED: VALI2TAB PO (14:53)
[2017-02-18] MEDS ORDERED: KETO10TAB PO (15:00)
[2017-02-18] MEDS ORDERED: PERCOCET 5MG/325MG TAB PO ONE (15:00)
[2017-02-18 15:05] VITALS: BP 141/72
--- NOTE | 2017-02-18 19:40 | ECGEPIP ---
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
== END 2017-02-18 15:06 | disposition home or self-care (01) ==
LOC: M ED 12:10
DX: M54.9 Dorsalgia, unspecified (principal); M79.606 Pain in leg, unspecified; I10 Essential (primary) hypertension; I25.2 Old myocardial infarction; F17.210 Nicotine dependence, cigarettes, uncomplicated; Z95.5 Presence of coronary angioplasty implant and graft; Z88.8 Allergy status to other drugs, medicaments and biological substances
CPT/HCPCS: 71010; 80048; 82550; 82553; 83880; 85025; 93000; 93041; 93971; 94760; 96374; 99284; J1885; J3360

== ENCOUNTER → 2017-03-02 | Outpatient (CLI) | payer MEDICAID ==
[~2017-03-02] MED LIST changes: +ALBU17IN INH; +BISO5TAB5 PO; +CLOP75TA2 PO; +GABA-283 PO; +KETO10TAB PO; +LISI10TA4 PO; +SIMV80TA PO; +TIZA4CAP3 PO; +VALI2TAB PO; +ZOLP10TA2 PO
--- NOTE | 2017-03-12 23:32 | ECWPNPC ---
PATIENT NAME: TARAN MUÑOZ : 1960 GENDER: MALE VISIT DATE: 03/02/2017 DISCHARGE DATE: 03/02/17 1304 VISIT LOCKED DATE TIME: PHYSICIAN: MAGDIEL TORRE RESOURCE: MAGDIEL TORRE REASON FOR APPOINTMENT 1. BACK/LEG HISTORY OF PRESENT ILLNESS NEW PATIENT CONSULT: 56 Y/O MALE REFERRED BY PRIMARY CARE MICHELLE BURNETT FOR CHRONIC LOW BACK PAIN WITH RIGHT LEG PAIN.LONG HISTORY OF CHRONIC LOW BACK PAIN HE FEELS STEMMED FROM LIFTING HEAVY BOX AND TWISTING SEVERAL YEARS AGO.NERVE PAIN BEGAN A FEW MONTHS AGO DOWN RIGHT POSTERIOR LEG AND FOOT.[place] [facility] [place] WITH HIM N[place] W[place].HE HAS HAD SOME RELIEF WITH INJECTIONS IN PAST.DESCRIBES PAIN CONSTANT ACHING AND SHARP PAIN.RATING PAIN VAS 10/10.PAIN IS AGGREVATED BY STANDING AND WALKING.RELIEVED SOMEWHAT WHEN HE AVOIDS PRESSURE OVER RIGHT BUTTOCKS.DENIES RECENT FEVER ,ILLNESS OR WEIGHT LOSS.DENIES BOWEL OR BLADDER INCONTINENCE. WHEN DID YOUR PAIN FIRST START? . BRIEFLY DESCRIBE HOW YOUR PAIN STARTED? . HOW DOES YOUR PAIN CHANGE WITH TIME? . DOES YOUR PAIN AWAKEN YOU FROM SLEEP? . HOW MANY HOURS OF SLEEP DO YOU NORMALLY GET? . ANY DIAGNOSTIC TESTING? . FACILITY WHERE TESTS WERE DONE? ____. PAIN TREATMENT TREATMENT YES CANCER HAVE YOU EVER HAD ANY TYPE OF CANCER?NO NO. PAIN SCREENING: PATIENT HAS A COMPLAINT OF ACUTE OR CHRONIC PAIN :YES FALL RISK SCREENING: SCREENING :NO FALLS IN THE PAST YEAR CERVANTES INVENTORY: QUESTIONNAIRE ASSESSEDTBD SCORE VALUE CALCULATED TBD CURRENT MEDICATIONS TAKING OMEPRAZOLE 20MG 20MG TABLET 1 TAB(S) ORAL DAILY TAKING NICOTINE 21 MG/24HR PATCH 24 HOUR 1 PATCH TO SKIN TRANSDERMAL ONCE A DAY TAKING VITAMIN D (ERGOCALCIFEROL) 36036 UNIT CAPSULE 1 CAPSULE ORALLY WEEKLY TAKING BISOPROLOL FUMARATE 5 MG TABLET 1/2 TABLET ORALLY ONCE A DAY TAKING AMBIEN 10 MG TABLET 1 TABLET AT BEDTIME NEEDED ORALLY ONCE A DAY TAKING CLOPIDOGREL BISULFATE 75 MG TABLET 1 TABLET ORALLY ONCE A DAY TAKING SIMVASTATIN 80 MG TABLET 1 TABLET IN THE EVENING ORALLY ONCE A DAY TAKING LISINOPRIL 10 MG TABLET 1 TABLET ORALLY ONCE A DAY TAKING LYRICA 300 MG CAPSULE 1 CAPSULE ORALLY TWICE A DAY TAKING GABAPENTIN 800 MG TABLET 1 TABLET ORALLY THREE TIMES A DAY TAKING HYDROCODONE-ACETAMINOPHEN 10-325 MG TABLET 1 TABLET NEEDED ORALLY EVERY 6 HRS TAKING ASPIRIN 325 MG TABLET 1 TABLET ORALLY ONCE A DAY TAKING TIZANIDINE HCL 4 MG TABLET 1 TABLET NEEDED ORALLY THREE TIMES A DAY TAKING PROAIR HFA 108 (90 BASE) MCG/ACT AEROSOL SOLUTION 2 PUFFS NEEDED INHALATION QID PRN NOT-TAKING MOTRIN 800 MG TABLET 1 TABLET ORALLY TWICE DAILY NOT-TAKING CYMBALTA 60 MG CAPSULE DELAYED RELEASE PARTICLES 1 CAPSULE ORALLY ONCE A DAY NOT-TAKING GABAPENTIN 300 300 MG TABLET 1 TABLET ORAL DAILY NOT-TAKING MOTRIN 600 MG TABLET 1 TABLET ORALLY THREE TIMES A DAY NOT-TAKING NEXIUM 40 MG CAPSULE DELAYED RELEASE 1 CAPSULE ORALLY ONCE A DAY MEDICATION LIST REVIEWED AND RECONCILED WITH THE PATIENT PAST MEDICAL HISTORY HYPERCHOLESTEROLEMIA. GERD HAS CORONARY STENT ALLERGIES CHANTIX: RED RASH FAMILY HISTORY FATHER: , COLON CARCINOMA, DIAGNOSED WITH CANCER MOTHER: ALIVE SIBLINGS: 36 YRS, LUNG CANCER SON(S): ALIVE DAUGHTER(S): ALIVE PATERNAL GRAND FATHER: DIABETES, COLON CARCINOMA PATERNAL GRAND MOTHER: DIABETES, COLON CARCINOMA MATERNAL GRAND FATHER: DIABETES, COLON CARCINOMA MATERNAL GRAND MOTHER: DIABETES, COLON CARCINOMA SOCIAL HISTORY GENERAL: TOBACCO USE ARE YOU A:CURRENT SMOKER HOW MANY CIGARETTES A DAY DO YOU SMOKE?6-10 HOW OFTEN DO YOU SMOKE CIGARETTES?EVERY DAY PATIENT COUNSELED ON THE DANGERS OF TOBACCO USE AND URGED TO QUIT:03/02/2017 ARE YOU INTERESTED IN QUITTING?READY TO QUIT PREVIOUS QUIT ATTEMPTS?YES, WITHIN THE LAST 6 MONTHS. COUNSELED THE PATIENT ON TOBACCO USE, CESSATION [id number]/14/2017 ALCOHOL SCREENING DID YOU HAVE A DRINK CONTAINING ALCOHOL IN THE PAST YEAR?NO POINTS0 INTERPRETATIONNEGATIVE CAFFEINE CAFFEINE USE?YES HOW OFTEN AND HOW MUCH? 1 CUP COFFEE PER DAY OCCUPATION: UNABLE TO WORK/ CANNOT WALK OR EAT DUE TO THE PAIN/ HAS NOT BEEN ABLE TO SLEEP DUE TI THE PAIN. EXERCISE: NO REGULAR EXERCISE. PROTESTANT [id number] OTHER NO MUSLIM BELIEFS THAT WOULD IMPACT HEALTH CARE./ NO PREFERENCE LANGUAGE LANGUAGES SPOKEN:SINHALA LEARNING BARRIERS / SPECIAL NEEDS BARRIERS TO LEARNING?NO VISION IMPAIRED?YES :CORRECTIVE LENSES JUST FOR READING COGNITIVELY IMPAIRED?NO READINESS TO LEARN?YES LEARNING PREFERENCES?NO LEARNING CAPABILITIES PRESENT?YES EMOTIONAL BARRIERS?NO SPECIAL DEVICES?NO FISCAL SPECIALIST NEEDED?NO PAIN CLINIC PFS, CLERGY, PUBLIC HEALTH REFERRALS PFS REFERRAL NEEDED?NO CLERGY REFERRAL NEEDED?NO PUBLIC HEALTH REFERRAL NEEDED?NO WAS THE PROVIDER NOTIFIED OF ANY PERTINENT INFO?NO HAS THE PATIENT BEEN EDUCATED REGARDING HIS/HER PLAN OF CARE?YES HAS THE PATIENT BEEN EDUCATED REGARDING PAIN, THE RISK FOR PAIN, THE IMPORTANCE OF EFFECTIVE PAIN MANAGEMENT, AND THE PAIN ASSESSMENT PROCESS?YES PATIENT: ____. ADVANCE DIRECTIVES HEALTH CARE PROXY?NO WOULD YOU LIKE MORE INFORMATION?NO SOCIAL HISTORY PATIENT HAS VERY SUPPORTIVE FIANCE WHO HELPS HIM ALOT 2 1/2 - 3 MONTHS AGO STARTED WITH THIS SCIATIC PAIN DOWN THE RIGHT LEG. HAS HAD INJECTIONS IN THEPAST FOR BACK PAIN WITH AN OLD INJURY, BUT THIS IS JUST SO MUCH WORSE THAT IT IS UNBARABLE. REFERRED HIM HERE. REVIEW OF SYSTEMS REVIEWED BY: PROVIDER: MAGDIEL FLANAGAN . CONSTITUTIONAL: ANY CHANGE IN YOUR MEDICAL CONDITION? NO . CHILLS NO . FEVER NO . INFECTION: DO YOU HAVE NEW INFECTIONS? NO . DO YOU HAVE HISTORY OF MRSA? NO . MUSCULOSKELETAL: ANY NEW PATTERNS OF PAIN OR NUMBNESS? NO . SYTEMIC LUPUS NO . GASTROENTEROLOGY: ANY NEW CHANGE IN BOWEL CONTROL? NO . BARRETTS ESOPHAGUS NO . CIRRHOSIS NO . HEPATITIS NO . LIVER FAILURE NO . ACID REFLUX YES . UNEXPLAINED WEIGHT LOSS NO . GENITOURINARY: ANY NEW CHANGE IN BLADDER CONTROL? NO . IS THERE A CHANCE YOU COULD BE ? NO . HEMATOLOGY/LYMPH: DO YOU TAKE ANY BLOOD THINNERS? (FOR EXAMPLE- COUMADIN, PLAVIX, AGGRENOX, PLATEL, PRADAXA, OR XARELTO) YES . WHEN WAS YOUR LAST DOSE? DATE: TIME: . LOW PLATELET COUNT NO . SICKLE CELL DISEASE NO . VON WILLIEBRANDS NO . FACTOR V LEIDEN NO . THALLASEMIA NO . ANEMIA NO . EASY BRUISING NO . NEUROLOGY: HAVE YOU FALLEN IN THE PAST 6 MONTHS? NO . ANY NEW EXTREMITY NUMBNESS OR WEAKNESS? NO . HEAD INJURY NO . DEMENTIA NO . CEREBRAL PALSY NO . MULTIPLE SCLEROSIS NO . DIZZINESS NO . HEADACHE NO . STROKES NO . VERTIGO NO . CARDIOLOGY: DO YOU HAVE A PACEMAKER OR DEFIBRILLATOR? NO . ANGINA NO . HEART ATTACK YES/ HAS STENTS AND ON PLAVIX . HEART SURGERY NO . CONGESTIVE HEART FAILURE/FLUID OVERLOAD NO . CHEST PAIN NO . HIGH BLOOD PRESSURE NO . IRREGULAR HEART BEAT NO . RESPIRATORY: HAVE YOU BEEN SICK IN THE PAST WEEK? NO . FEVER NO . FLU LIKE SYMPTOMS? NO . CPAP NO . BYPAP NO . ASTHMA NO . EMPHYSEMA NO . CHRONIC LUNG DISEASES NO . SHORTNESS OF BREATH ON EXERTION NO . DO YOU USE ANY TYPE OF TOBACCO (SMOKE, SMOKELESS, CHEW)? YES . COUGH YES . SNORING NO . INTEGUMENTARY: DO YOU HAVE ANY RASHES OR OPEN SORES? NO . ALLERGIC/IMMUNO: ARE YOU ALLERGIC TO SHELLFISH OR IV DYE? NO . ANY NEW ALLERGIES? NO . PSYCHIATRIC: DO YOU HAVE THOUGHTS OF HURTING YOURSELF OR SOMEONE ELSE? NO . ARE YOU ABUSED, NEGLECTED, OR IN AN UNSAFE ENVIRONMENT? NO . ENDOCRINOLOGY: ARE YOU DIABETIC? NO . THYROID DISORDER NO . OTHER: DO YOU NEED ANY PRESCRIPTIONS? NO . IF YES, PLEASE LIST: ____ . ANY NEW PROBLEMS WITH YOUR MEDICATIONS? NO . WHEN DID YOU LAST EAT? ____ . WHEN DID YOU LAST DRINK? ____ . WHAT DID YOU LAST DRINK? ____ . NAME OF PERSON DRIVING YOU HOME? ____ . DO YOU HAVE ANY OTHER QUESTIONS OR CONCERNS NO . VITAL SIGNS WT 180 LBS, HT 5 FT 11 IN, BMI 25.10 INDEX, BP 114/78 MM HG, HR 86 /MIN, RR 18 /MIN, TEMP 96.7 F, OXYGEN SAT % 97%, NA INITIALS SC 09:59, REVIEWED BY: NL. EXAMINATION GENERAL EXAMINATION: GENERAL APPEARANCE:COMFORTABLE . NECK:TRACHEA MIDLINE. NO CERVICAL OR SUPRACLAVICULAR LYMPHADENOPATHY NOTED . LUNGS:LUNG PITTS ARE CLEAR TO AUSCULTATION BILATERALLY. GOOD MOVEMENT OF AIR . HEART:S1, S2 IN A REGULAR RATE AND RHYTHM. NO SIGNIFICANT MURMURS, RUBS OR GALLOPS NOTED . ABDOMEN:BOWEL SOUNDS: NORMAL, PALPATION:, NO TENDERNESS TO PALPATION . MUSCULOSKELETAL:MUSCLE STRENGTH TESTING 5/5 BILATERAL. LUMBAR SACRAL SPINEPALPATION: NEGATIVE FOR PAIN OVER L/S SPINE. NEGATIVE FOR PAIN OVER L/S PARSPINALS.SPECIFIC POINT TENDERNESS OVER SIJ BILAT.. ASSESSMENTS SACROILIAC JOINT PAIN - M53.3 (PRIMARY) TREATMENT SACROILIAC JOINT PAIN NOTES: CONTINUE CARE W DR. HAGER AND MEDICINE /TREATMENT WITH PRIMARY CARE.ER EVALUATION FOR ANY SEVERE FLARE UP OF LOWER EXTREMITY WEAKNESS OR BOWEL OR BLADDER INCONTINENCE. PROCEDURE CODES FA211 ESTABILISHED PATIENT [facility] FACILITY CHARGE DISPOSITION & COMMUNICATION FOLLOW UP NO F/U NECESSARY ELECTRONICALLY SIGNED BY PANCHITO UNDERWOOD ON 03/12/2017 AT 08:11 PM EDT DISCLAIMER : THIS IS A VISIT SUMMARY EXTRACTED FROM THE [employer] CHART. IT IS NOT A COPY OF THE [employer] PROGRESS NOTE. CHAY
== END ==
LOC: M PAIN 10:00
PROVIDERS: ATTEND Nurse Practitioner Family
DX: M53.3 Sacrococcygeal disorders, not elsewhere classified (principal); M54.5 Low back pain; G89.29 Other chronic pain; F17.210 Nicotine dependence, cigarettes, uncomplicated; Z79.82 Long term (current) use of aspirin; Z79.891 Long term (current) use of opiate analgesic; Z79.899 Other long term (current) drug therapy; Z88.8 Allergy status to other drugs, medicaments and biological substances

== ENCOUNTER → 2017-04-11 | Outpatient (CLI) | payer MEDICAID, OTHER ==
[2017-04-11 16:02] LABS: COLLAGEN ADP 47 SECONDS (56-103)
== END ==
LOC: M LAB 15:21
PROVIDERS: ATTEND Neurological Surgery
DX: Z01.818 Encounter for other preprocedural examination (principal)

== ENCOUNTER → 2017-07-25 | Outpatient (CLI) | payer OTHER ==
[2017-07-25 10:02] LABS: BASO % 0.5 % (0.0-1.0); EOS # 0.2 10^3/uL (0.0-0.50); EOS % 1.8 % (0.0-3.0); HEMOGLOBIN 16.7 g/dl (14.0-18.0); IMMATURE GRANULOCYTE % 0.2 % (0-0); LYMPH # 2.4 10^3/uL (1.5-4.5); LYMPH % 28.1 % (24.0-44.0); MEAN CORPUSCULAR HEMOGLOBIN 30.6 pg (27.0-33.0); MEAN CORPUSCULAR HGB CONC 34.1 g/dl (32.0-36.5); MEAN CORPUSCULAR VOLUME 89.9 fl (80.0-96.0); MONO % 12.2 % (0.0-5.0); NEUTROPHILS # 4.8 10^3/uL (1.8-7.7); NEUTROPHILS % 57.2 % (36.0-66.0); PLATELET COUNT, AUTOMATED 283 10^3/uL (150-450); RED BLOOD COUNT 5.45 10^6/uL (4.30-6.10); RED CELL DISTRIBUTION WIDTH 14.3 % (11.5-14.5); WHITE BLOOD COUNT 8.4 10^3/uL (4.0-10.0)
[2017-07-25 10:25] LABS: ALBUMIN/GLOBULIN RATIO 1.33 (1.00-1.93); ALKALINE PHOSPHATASE 120 U/L (45-117); ALT/SGPT 30 U/L (12-78); ANION GAP 5 MEQ/L (8-16); AST/SGOT 15 U/L (7-37); BILIRUBIN,TOTAL 0.5 MG/DL (0.2-1.0); BLOOD UREA NITROGEN 9 MG/DL (7-18); CALCIUM LEVEL 8.9 MG/DL (8.5-10.1); CARBON DIOXIDE LEVEL 29 MEQ/L (21-32); CHLORIDE LEVEL 110 MEQ/L (98-107); CHOLESTEROL LEVEL 173 MG/DL (<200); CHOLESTEROL RISK RATIO 6.178 (<5); CREATININE FOR GFR 1.01 MG/DL (0.70-1.30); GLOMERULAR FILTRATION RATE > 60.0 (>56); GLUCOSE, FASTING 110 MG/DL (70-100); HDL CHOLESTEROL 28 MG/DL (>40); LDL CHOLESTEROL 101.8 MG/DL (<100); NON-HDL-C 145 MG/DL; POTASSIUM SERUM 4.4 MEQ/L (3.5-5.1); SODIUM LEVEL 144 MEQ/L (136-145); TRIGLYCERIDES LEVEL 216 MG/DL (<150)
[2017-07-25 10:43] LABS: TOTAL 25(OH) VITAMIN D 55.8 NG/ML (30.0-100.0)
== END ==
LOC: M LAB 09:09
DX: E78.2 Mixed hyperlipidemia (principal); E55.9 Vitamin D deficiency, unspecified
CPT/HCPCS: 80053

== ENCOUNTER 2017-09-01 18:08 | Emergency (ER) | payer OTHER | END 2017-09-01 20:15 | disposition home or self-care (01) | LOC: M ED 18:08 | DX: M54.16 Radiculopathy, lumbar region (principal); G89.29 Other chronic pain; I10 Essential (primary) hypertension; J44.9 Chronic obstructive pulmonary disease, unspecified; K21.9 Gastro-esophageal reflux disease without esophagitis; F17.200 Nicotine dependence, unspecified, uncomplicated; Z79.899 Other long term (current) drug therapy; Z88.8 Allergy status to other drugs, medicaments and biological substances; Z95.1 Presence of aortocoronary bypass graft | CPT/HCPCS: 99283 ==

== ENCOUNTER 2017-09-06 09:23 | Emergency (ER) | payer OTHER ==
[2017-09-06] MEDS: KETOROLAC 30 MG/ML VIAL (J1885) IV (10:00)
[2017-09-06] MEDS: METOCLOPRAMIDE INJ 10MG/2ML VIAL (J2765) IV (10:00)
[2017-09-06] MEDS: NS 1,000 ML IV (10:00)
== END 2017-09-06 11:13 | disposition home or self-care (01) ==
LOC: M ED 09:23
DX: G44.209 Tension-type headache, unspecified, not intractable (principal); Z76.0 Encounter for issue of repeat prescription; G89.4 Chronic pain syndrome; I10 Essential (primary) hypertension; I25.2 Old myocardial infarction; J44.9 Chronic obstructive pulmonary disease, unspecified; K21.9 Gastro-esophageal reflux disease without esophagitis; M54.9 Dorsalgia, unspecified; Z95.5 Presence of coronary angioplasty implant and graft; F17.210 Nicotine dependence, cigarettes, uncomplicated; Z88.8 Allergy status to other drugs, medicaments and biological substances; Z79.899 Other long term (current) drug therapy; Z79.02 Long term (current) use of antithrombotics/antiplatelets
CPT/HCPCS: J1885

== ENCOUNTER 2017-09-10 11:37 | Emergency (ER) | payer OTHER | END 2017-09-10 11:41 | disposition home or self-care (01) | LOC: M ED 11:37 | DX: Z76.0 Encounter for issue of repeat prescription (principal); M79.604 Pain in right leg; G89.29 Other chronic pain; I10 Essential (primary) hypertension; J44.9 Chronic obstructive pulmonary disease, unspecified; G47.33 Obstructive sleep apnea (adult) (pediatric); E78.00 Pure hypercholesterolemia, unspecified; K21.9 Gastro-esophageal reflux disease without esophagitis; F17.210 Nicotine dependence, cigarettes, uncomplicated; Z79.01 Long term (current) use of anticoagulants; Z95.5 Presence of coronary angioplasty implant and graft | CPT/HCPCS: 99282 ==

== ENCOUNTER 2017-09-13 16:18 | Emergency (ER) | payer OTHER | END 2017-09-13 17:58 | disposition home or self-care (01) | LOC: M ED 16:18 | DX: M54.9 Dorsalgia, unspecified (principal); Z76.0 Encounter for issue of repeat prescription; I25.2 Old myocardial infarction; I10 Essential (primary) hypertension; E78.5 Hyperlipidemia, unspecified; R51 Headache; G47.30 Sleep apnea, unspecified; K21.9 Gastro-esophageal reflux disease without esophagitis; Z95.5 Presence of coronary angioplasty implant and graft; J44.9 Chronic obstructive pulmonary disease, unspecified; Z79.02 Long term (current) use of antithrombotics/antiplatelets; Z79.899 Other long term (current) drug therapy; Z88.8 Allergy status to other drugs, medicaments and biological substances; F17.200 Nicotine dependence, unspecified, uncomplicated | CPT/HCPCS: 99283 ==

== ENCOUNTER 2017-09-24 11:04 | Emergency (ER) | payer OTHER | END 2017-09-24 12:22 | disposition home or self-care (01) | LOC: M ED 11:04 | DX: K02.9 Dental caries, unspecified (principal); I25.10 Atherosclerotic heart disease of native coronary artery without angina pectoris; F17.200 Nicotine dependence, unspecified, uncomplicated; Z88.8 Allergy status to other drugs, medicaments and biological substances; Z79.899 Other long term (current) drug therapy; Z79.02 Long term (current) use of antithrombotics/antiplatelets; Z79.82 Long term (current) use of aspirin | CPT/HCPCS: 99282 ==

== ENCOUNTER 2018-03-06 17:45 | Emergency (ER) | payer OTHER ==
[2018-03-06] MEDS ORDERED: AUGMENTIN 875 MG TAB PO (19:00)
[2018-03-06] MEDS ORDERED: NORCO, ANEXSIA 5/325MG TABLET (HYDROcodone/ACETAMINOPHEN) PO (19:00)
== END 2018-03-06 19:00 | disposition home or self-care (01) ==
LOC: M ED 17:45
DX: K02.9 Dental caries, unspecified (principal); I25.10 Atherosclerotic heart disease of native coronary artery without angina pectoris; J44.9 Chronic obstructive pulmonary disease, unspecified; K21.9 Gastro-esophageal reflux disease without esophagitis
CPT/HCPCS: 99282

== ENCOUNTER 2018-04-20 13:09 | Emergency (ER) | payer OTHER ==
[2018-04-20] MEDS: KETOROLAC 30 MG/ML VIAL (J1885) IV (13:46)
[2018-04-20 13:52] LABS: BASO % 0.2 % (0.0-1.0); EOS # 0.2 10^3/uL (0.0-0.50); EOS % 1.8 % (0.0-3.0); HEMATOCRIT 45.1 % (42.0-52.0); HEMOGLOBIN 15.4 g/dl (13.5-17.5); IMMATURE GRANULOCYTE % 0.2 % (0-3.0); LYMPH # 2.7 10^3/uL (1.5-4.5); MEAN CORPUSCULAR HGB CONC 34.1 g/dl (32.0-36.5); MEAN CORPUSCULAR VOLUME 90.7 fl (80.0-96.0); MONO # 0.8 10^3/uL (0.0-0.8); MONO % 9.7 % (0.0-5.0); NEUTROPHILS # 4.7 10^3/uL (1.8-7.7); NEUTROPHILS % 56.1 % (36.0-66.0); PLATELET COUNT, AUTOMATED 286 10^3/uL (150-450); RED BLOOD COUNT 4.97 10^6/uL (4.30-6.10); RED CELL DISTRIBUTION WIDTH 15.3 % (11.5-14.5); WHITE BLOOD COUNT 8.4 10^3/uL (4.0-10.0)
[2018-04-20 13:57] LABS: KETONE, URINE AUTO RFX NEGATIVE (NEGATIVE); LEUKOCYTE ESTERASE UR AUTO RFX NEGATIVE (NEGATIVE); NITRITE, URINE AUTO RFX NEGATIVE (NEGATIVE); RBC, URINE AUTO RFX 0 /HPF (0-3); SPECIFIC GRAVITY UR AUTO RFX 1.003 (1.002-1.035); SQUAM EPITHELIAL CELL UR AURFX 0 /HPF (0-6); WBC, URINE AUTO RFX 0 /HPF (0-3)
[2018-04-20 14:08] LABS: ALBUMIN 3.4 GM/DL (3.2-5.2); ALBUMIN/GLOBULIN RATIO 1.06 (1.00-1.93); ALKALINE PHOSPHATASE 150 U/L (45-117); ALT/SGPT 35 U/L (12-78); ANION GAP 9 MEQ/L (8-16); AST/SGOT 23 U/L (7-37); BILIRUBIN,DIRECT 0.1 MG/DL (0.0-0.2); BILIRUBIN,TOTAL 0.5 MG/DL (0.2-1.0); BLOOD UREA NITROGEN 9 MG/DL (7-18); CALCIUM LEVEL 8.4 MG/DL (8.5-10.1); CARBON DIOXIDE LEVEL 26 MEQ/L (21-32); CHLORIDE LEVEL 111 MEQ/L (98-107); CREATININE FOR GFR 0.86 MG/DL (0.70-1.30); GLOMERULAR FILTRATION RATE > 60.0 (>56); GLUCOSE, FASTING 116 MG/DL (70-100); LIPASE 285 U/L (73-393); POTASSIUM SERUM 4.5 MEQ/L (3.5-5.1); SODIUM LEVEL 146 MEQ/L (136-145); TOTAL PROTEIN 6.6 GM/DL (6.4-8.2)
[2018-04-20] MEDS: PERCOCET 5MG/325MG TAB PO (15:00)
== END 2018-04-20 15:02 | disposition home or self-care (01) ==
LOC: M ED 13:09
DX: R36.1 Hematospermia (principal); I25.10 Atherosclerotic heart disease of native coronary artery without angina pectoris; I25.2 Old myocardial infarction; I10 Essential (primary) hypertension; J44.9 Chronic obstructive pulmonary disease, unspecified; Z95.5 Presence of coronary angioplasty implant and graft; Z72.0 Tobacco use; Z79.899 Other long term (current) drug therapy; Z88.8 Allergy status to other drugs, medicaments and biological substances
CPT/HCPCS: J1885

== ENCOUNTER 2018-07-15 14:27 | Emergency (ER) | payer OTHER ==
[~2018-07-15] VITALS: Ht 180.3 cm; Wt 79.5 kg
[~2018-07-15 14:27] MED LIST changes: +AMBI10TA PO; +ASPI1CHW2 PO; +ATOR1TAB21 PO; +ATOR80TA59 PO; +AUGM875T28 PO; -GABA-282 PO; -GABA-283 PO; +GABA-843 PO; +GABA-845 PO; +HYDR-3719 PO; +NORC10TA21 PO; +NORC1TAB4 PO; +NORCOTAB PO; +PLAV1TAB2 PO; -SIMV80TA PO; +SIMV80TA13 PO; +TIZA4CAP PO; -TIZA4CAP3 PO; +VENTAER
[2018-07-15 14:28] VITALS: BP 138/93
[2018-07-15] MEDS ORDERED: IBUP-1022 PO (15:05)
[2018-07-15] MEDS ORDERED: PENI500T PO (15:07)
--- NOTE | 2018-07-15 18:24 | ECGEPIP ---
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
== END 2018-07-15 15:15 | disposition home or self-care (01) ==
LOC: M ED 14:27
DX: R07.89 Other chest pain (principal); I10 Essential (primary) hypertension; F17.200 Nicotine dependence, unspecified, uncomplicated

== ENCOUNTER 2018-09-09 11:01 | Emergency (ER) | payer OTHER ==
[~2018-09-09] VITALS: Ht 180.3 cm; Wt 78.5 kg
[~2018-09-09 11:01] MED LIST changes: +HYDR-3715 PO; +IBUP-1022 PO; -NORC10TA21 PO; -NORC1TAB4 PO; +NORC1TAB5 PO; +NORC1TAB7 PO; -NORCOTAB PO; +PENI500T PO; -VICO5TAB16 PO; +VICO5TAB17 PO
[2018-09-09 11:44] LABS: BASO % 0.5 % (0.0-1.0); EOS # 0.2 10^3/uL (0.0-0.50); EOS % 1.9 % (0.0-3.0); HEMATOCRIT 45.7 % (42.0-52.0); HEMOGLOBIN 15.9 g/dl (13.5-17.5); LYMPH # 3.2 10^3/uL (1.5-4.5); LYMPH % 36.1 % (24.0-44.0); MEAN CORPUSCULAR HEMOGLOBIN 30.9 pg (27.0-33.0); MEAN CORPUSCULAR HGB CONC 34.8 g/dl (32.0-36.5); MEAN CORPUSCULAR VOLUME 88.9 fl (80.0-96.0); MONO # 0.9 10^3/uL (0.0-0.8); MONO % 9.7 % (0.0-5.0); NEUTROPHILS # 4.5 10^3/uL (1.8-7.7); NEUTROPHILS % 51.6 % (36.0-66.0); PLATELET COUNT, AUTOMATED 298 10^3/uL (150-450); RED BLOOD COUNT 5.14 10^6/uL (4.30-6.10); WHITE BLOOD COUNT 8.8 10^3/uL (4.0-10.0)
[2018-09-09 12:10] LABS: AMPHETAMINES LEVEL URINE NEGATIVE (NEGATIVE); BARBITURATES URINE NEGATIVE (NEGATIVE); BENZODIAZEPINES URINE NEGATIVE (NEGATIVE); CANNABINOIDS URINE NEGATIVE (NEGATIVE); COCAINE METABOLITE URINE NEGATIVE (NEGATIVE); METHADONE URINE NEGATIVE (NEGATIVE); OPIATES URINE NEGATIVE (NEGATIVE); PHENCYCLIDINE URINE NEGATIVE (NEGATIVE)
[2018-09-09 12:27] LABS: BLOOD UREA NITROGEN 10 MG/DL (7-18); CALCIUM LEVEL 8.6 MG/DL (8.5-10.1); CARBON DIOXIDE LEVEL 26 MEQ/L (21-32); CHLORIDE LEVEL 106 MEQ/L (98-107); CK-MB VALUE MASS < 1.0 NG/ML (<3.6); CPK CREATINE PHOSPHOKINASE 76 U/L (39-308); CREATININE FOR GFR 1.04 MG/DL (0.70-1.30); ETHYL ALCOHOL (ETHANOL) < 0.003 % (0.000-0.010); FREE T4 0.96 NG/DL (0.76-1.46); GLOMERULAR FILTRATION RATE > 60.0 (>56); GLUCOSE, FASTING 119 MG/DL (70-100); MB/CK RELATIVE INDEX 1.32 (< OR =4); POTASSIUM SERUM 4.1 MEQ/L (3.5-5.1); SODIUM LEVEL 139 MEQ/L (136-145); TROPONIN I < 0.02 NG/ML (< 0.10)
[2018-09-09] MEDS ORDERED: VENTAER INH (12:30)
[2018-09-09] MEDS ORDERED: ZOLP10TA2 PO (12:30)
[2018-09-09] MEDS ORDERED: TIZA4TAB4 PO (12:30)
--- NOTE | 2018-09-09 13:30 | REP ---
CT BRAIN WITHOUT CONTRAST: CT brain performed without if contrast. Ventricles are normal in size and position with no midline shift or mass effect. Gonzalez-white differentiation is well maintained. There is no acute intracranial hemorrhage or extra-axial fluid collection. No skull fracture is seen. Visualized paranasal sinuses and mastoid air cells are clear. IMPRESSION: Negative noncontrast CT brain. Electronically Signed by Williams Gonzalez MD 09/09/2018 06:13 P
--- NOTE | 2018-09-09 13:44 | REP ---
RIGHT SHOULDER SERIES: Three views of the right shoulder are performed. There is no acute fracture or dislocation. There are mild degenerative changes at the acromioclavicular joint and glenohumeral joints with mild joint space narrowing and spurring noted. IMPRESSION: Mild degenerative changes. No acute fracture or dislocation. Electronically Signed by Williams Gonzalez MD 09/09/2018 06:14 P
--- NOTE | 2018-09-09 13:45 | REP ---
CHEST, TWO VIEWS: Comparison is 08/03/2016. There is no evidence of acute infiltrate. No pleural effusion is seen. The heart is normal in size. The mediastinal silhouette is unremarkable. The visualized osseous structures are intact. There are mild degenerative changes of the spine. IMPRESSION: No acute pulmonary disease. Electronically Signed by Williams Gonzalez MD 09/09/2018 06:14 P
[2018-09-09] MEDS ORDERED: FLON1SPR NARES (14:06)
[2018-09-09] MEDS ORDERED: NAPR-885 PO (14:06)
[2018-09-09] MEDS ORDERED: TYLE650T35 PO (14:11)
[2018-09-09 14:33] VITALS: BP 110/76
--- NOTE | 2018-09-09 20:04 | ECGEPIP ---
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
== END 2018-09-09 14:46 | disposition home or self-care (01) ==
LOC: M ED 11:01
DX: M19.011 Primary osteoarthritis, right shoulder (principal); R42 Dizziness and giddiness; H69.90 Unspecified Eustachian tube disorder, unspecified ear; I25.2 Old myocardial infarction; I10 Essential (primary) hypertension; E78.5 Hyperlipidemia, unspecified; R51 Headache; Z95.5 Presence of coronary angioplasty implant and graft; Z79.899 Other long term (current) drug therapy; Z88.8 Allergy status to other drugs, medicaments and biological substances
CPT/HCPCS: 70450; 71046; 73030; 80048; 80307; 81001; 82550; 82553; 84439; 84443; 85025; 93005; 99284; G0480

== ENCOUNTER → 2018-09-28 | Outpatient (CLI) | payer OTHER ==
[~2018-09-28] MED LIST changes: +FLON1SPR NARES; +NAPR-885 PO; +TIZA4TAB4 PO; +TYLE650T35 PO; +VENTAER INH
[2018-09-28 13:03] LABS: INR 0.95; PARTIAL THROMBOPLASTIN TIME 27.7 SECONDS (25.4-37.6); PROTHROMBIN TIME 12.8 SECONDS (12.1-14.4)
== END ==
LOC: M LAB 12:17
PROVIDERS: ATTEND Physical Medicine & Rehabilitation
DX: Z01.812 Encounter for preprocedural laboratory examination (principal)

== ENCOUNTER 2019-01-26 11:32 | Emergency (ER) | payer OTHER ==
[~2019-01-26] VITALS: Ht 180.3 cm; Wt 79.5 kg
--- NOTE | 2019-01-26 12:11 | REP ---
REASON: Pain after trauma. FINDINGS: There is no acute fracture, dislocation, subluxation or joint effusion. Electronically Signed by Kamaljit Amaya DO 01/26/2019 12:58 P
[2019-01-26] MEDS ORDERED: ASPI-524 PO (12:47)
[2019-01-26] MEDS ORDERED: HYDR-3713 PO (12:47)
[2019-01-26 14:12] VITALS: BP 140/75
== END 2019-01-26 14:17 | disposition home or self-care (01) ==
LOC: M ED 11:32
DX: M77.8 Other enthesopathies, not elsewhere classified (principal); J44.9 Chronic obstructive pulmonary disease, unspecified; I10 Essential (primary) hypertension; E78.5 Hyperlipidemia, unspecified; K21.9 Gastro-esophageal reflux disease without esophagitis; G89.29 Other chronic pain; M54.9 Dorsalgia, unspecified; I25.2 Old myocardial infarction; Z79.899 Other long term (current) drug therapy; Z79.82 Long term (current) use of aspirin; Z79.02 Long term (current) use of antithrombotics/antiplatelets; Z88.8 Allergy status to other drugs, medicaments and biological substances; F17.210 Nicotine dependence, cigarettes, uncomplicated

== ENCOUNTER → 2019-11-04 | Outpatient (CLI) | payer OTHER ==
[~2019-11-04] MED LIST changes: +ALBU8.5H; +ASPI325T57 PO; +ATOR1TAB19; +BISO5TAB14 PO; -BISO5TAB5 PO; +CARV3.12; +DOXY100C37; +HYDR-3713 PO; +MELO7.5T35; +OMEP-221; -OMEP40CA2 PO; +OMEP40CA97 PO; +RAMI1CAP22
[2019-11-04 07:03] LABS: HEMATOCRIT 44.5 % (42.0-52.0); HEMOGLOBIN 15.3 g/dl (13.5-17.5); MEAN CORPUSCULAR HEMOGLOBIN 32.5 pg (27.0-33.0); MEAN CORPUSCULAR HGB CONC 34.4 g/dl (32.0-36.5); MEAN CORPUSCULAR VOLUME 94.5 fl (80.0-96.0); PLATELET COUNT, AUTOMATED 276 10^3/uL (150-450); RED BLOOD COUNT 4.71 10^6/uL (4.30-6.10); WHITE BLOOD COUNT 7.7 10^3/uL (4.0-10.0)
--- NOTE | 2019-11-04 07:08 | ECGEPIP ---
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
[2019-11-04 07:18] LABS: HEMOGLOBIN A1c 5.7 %
--- NOTE | 2019-11-04 07:18 | REP ---
Clinical: Hypertension . Comparison: 09/09/2018 . Technique: PA and lateral. Findings: The mediastinum and cardiac silhouette are normal. The lung harden are clear and without acute consolidation, effusion, or pneumothorax. The skeletal structures are intact and normal. Impression: 1. No acute cardiopulmonary process. Electronically Signed by Obie Klein MD 11/04/2019 07:08 A
[2019-11-04 07:44] LABS: ALBUMIN 3.5 GM/DL (3.2-5.2); ALT/SGPT 27 U/L (12-78); BILIRUBIN,TOTAL 0.3 MG/DL (0.2-1.0); BLOOD UREA NITROGEN 17 MG/DL (7-18); CALCIUM LEVEL 8.6 MG/DL (8.5-10.1); CARBON DIOXIDE LEVEL 29 MEQ/L (21-32); CHLORIDE LEVEL 110 MEQ/L (98-107); CHOLESTEROL LEVEL 157 MG/DL (<200); CHOLESTEROL RISK RATIO 5.607 (<5); CREATININE FOR GFR 0.88 MG/DL (0.70-1.30); GLOMERULAR FILTRATION RATE > 60.0 (>56); GLUCOSE, FASTING 101 MG/DL (70-100); HDL CHOLESTEROL 28 MG/DL (>40); LDL CHOLESTEROL 103 MG/DL (<100); NON-HDL-C 129 MG/DL; PROSTATIC SPECIFIC AG MONITOR 8.16 NG/ML (< 4.00); SODIUM LEVEL 145 MEQ/L (136-145); TOTAL PROTEIN 6.4 GM/DL (6.4-8.2); TRIGLYCERIDES LEVEL 131 MG/DL (<150)
== END ==
LOC: M LAB 06:06
PROVIDERS: ATTEND Family Medicine
DX: I10 Essential (primary) hypertension (principal); G45.9 Transient cerebral ischemic attack, unspecified

== ENCOUNTER → 2019-11-06 | Outpatient (REF) | payer OTHER, MEDICAID | LOC: M SMT 17:19 | PROVIDERS: ATTEND Nurse Practitioner Family | DX: N39.0 Urinary tract infection, site not specified (principal) ==

== ENCOUNTER → 2019-11-14 | Outpatient (CLI) | payer OTHER ==
--- NOTE | 2019-11-14 20:30 | REP ---
Clinical: Right carotid bruit. Technique: Gonzalez scale and color Doppler evaluation using linear high frequency transducer Findings: Two-dimensional gonzalez scale and color images demonstrate minimal mixed atheromatous plaquing at the bilateral bulbs with normal laminar flow and no appreciable narrowing. Color Doppler interrogation demonstrates normal arterial wave patterns and velocities with no significant spectral broadening. Normal flow direction is appreciated in the bilateral vertebral arteries. RIGHT (cm/s) LEFT (cm/s) ICA peak systolic velocity 62.5 76.3 ICA diastolic velocity 26.5 35.7 ECA peak systolic velocity 80.9 57.5 CCA peak systolic velocity 78.0 99.0 ICA/CCA ratio 0.80 0.76 Impression: No hemodynamically significant areas of narrowing or stenosis appreciated. Based on set standards narrowing falls within the less than 50% range. Electronically Signed by Obie Klein MD 11/14/2019 08:21 P
== END ==
LOC: M RAD 14:26
PROVIDERS: ATTEND Family Medicine
DX: R09.89 Other specified symptoms and signs involving the circulatory and respiratory systems (principal)

== ENCOUNTER → 2019-12-20 | Outpatient (CLI) | payer OTHER | LOC: M LAB 08:04 | PROVIDERS: ATTEND Family Medicine | DX: Z79.899 Other long term (current) drug therapy (principal) ==

== ENCOUNTER → 2019-12-20 | Outpatient (CLI) | payer OTHER ==
[2019-12-25 05:07] LABS: PSA % FREE 7.6 % (.); PSA FREE 0.52 ng/mL; PSA TOTAL 6.8 ng/mL (0.0-4.0)
== END ==
LOC: M LAB 08:02
PROVIDERS: ATTEND Nurse Practitioner Family
DX: R97.20 Elevated prostate specific antigen [PSA] (principal)

== ENCOUNTER 2020-03-20 13:34 | Emergency (ER) | payer OTHER ==
[~2020-03-20] VITALS: Ht 180.3 cm; Wt 76.3 kg
[~2020-03-20 13:34] MED LIST changes: +ACET650T61 PO; -TYLE650T35 PO
[2020-03-20] MEDS ORDERED: HYDR-3713 (14:21)
[2020-03-20] MEDS ORDERED: NS 1,000 ML IV SCH (14:26)
[2020-03-20] MEDS ORDERED: ASPIRIN 81 MG CHEW TABLET PO ONE (14:30)
[2020-03-20] MEDS: NITROGLYCERIN 0.4 MG SUBL TABLET SL PRN ×2 (14:36→14:50)
--- NOTE | 2020-03-20 14:42 | REPVR ---
PROCEDURE INFORMATION: Exam: XR Chest, 1 View Exam date and time: 03/20/2020 2:15 PM Age: 59 years old Clinical indication: Chest pain; Type not specified TECHNIQUE: Imaging protocol: XR of the chest Views: 1 view. COMPARISON: CR Chest, 2 view PA, Lat 11/04/2019 6:58 AM FINDINGS: Lungs: Unremarkable. No consolidation. Pleural space: Unremarkable. No pleural effusion. No pneumothorax. Heart/Mediastinum: Unremarkable. No cardiomegaly. Bones/joints: Unremarkable. IMPRESSION: No evidence for acute pulmonary disease. Electronically signed by: Giovanny Dumont On 03/20/2020 14:43:00 PM
[2020-03-20 14:44] LABS: BASO % 0.5 % (0.0-1.0); EOS # 0.2 10^3/uL (0.0-0.5); HEMATOCRIT 46.5 % (42.0-52.0); HEMOGLOBIN 16.1 g/dl (13.5-17.5); LYMPH % 36.9 % (24.0-44.0); MEAN CORPUSCULAR HEMOGLOBIN 32.2 pg (27.0-33.0); MEAN CORPUSCULAR HGB CONC 34.6 g/dl (32.0-36.5); MONO # 0.9 10^3/uL (0.0-0.8); MONO % 10.9 % (0.0-5.0); NEUTROPHILS % 49.5 % (36.0-66.0); PLATELET COUNT, AUTOMATED 258 10^3/uL (150-450); WHITE BLOOD COUNT 8.1 10^3/uL (4.0-10.0)
[2020-03-20 14:50] VITALS: BP 137/80
[2020-03-20 14:57] LABS: INR 0.94; PARTIAL THROMBOPLASTIN TIME 25.5 SECONDS (24.2-38.5); PROTHROMBIN TIME 12.8 SECONDS (12.5-14.3)
[2020-03-20 15:06] LABS: ALBUMIN 3.8 GM/DL (3.2-5.2); ALT/SGPT 20 U/L (12-78); BILIRUBIN,DIRECT 0.1 MG/DL (0.0-0.2); BILIRUBIN,TOTAL 0.3 MG/DL (0.2-1.0); BLOOD UREA NITROGEN 11 MG/DL (7-18); CALCIUM LEVEL 9.3 MG/DL (8.5-10.1); CARBON DIOXIDE LEVEL 27 MEQ/L (21-32); CHLORIDE LEVEL 111 MEQ/L (98-107); CK-MB VALUE MASS < 1.0 NG/ML (<3.6); CPK CREATINE PHOSPHOKINASE 51 U/L (39-308); CREATININE FOR GFR 0.86 MG/DL (0.70-1.30); GLOMERULAR FILTRATION RATE > 60.0 (>56); GLUCOSE, FASTING 86 MG/DL (70-100); LIPASE 188 U/L (73-393); MB/CK RELATIVE INDEX 1.96 (< OR =4); POTASSIUM SERUM 4.1 MEQ/L (3.5-5.1); SODIUM LEVEL 142 MEQ/L (136-145); TOTAL PROTEIN 6.7 GM/DL (6.4-8.2); TROPONIN I < 0.02 NG/ML (< 0.10)
[2020-03-20 17:00] VITALS: BP 130/83
--- NOTE | 2020-03-20 20:40 | ECGEPIP ---
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
== END 2020-03-20 17:32 | disposition left against medical advice (07) ==
LOC: M ED 13:34
DX: R07.9 Chest pain, unspecified (principal); I11.0 Hypertensive heart disease with heart failure; E78.5 Hyperlipidemia, unspecified; K21.9 Gastro-esophageal reflux disease without esophagitis; R51.9 Headache, unspecified; J98.9 Respiratory disorder, unspecified; F17.200 Nicotine dependence, unspecified, uncomplicated; Z88.8 Allergy status to other drugs, medicaments and biological substances; Z79.899 Other long term (current) drug therapy; Z79.02 Long term (current) use of antithrombotics/antiplatelets; Z79.82 Long term (current) use of aspirin; Z79.2 Long term (current) use of antibiotics

== ENCOUNTER → 2020-03-23 | Outpatient (REF) | payer OTHER ==
[~2020-03-23] MED LIST changes: +HYDR-3713
== END ==
LOC: M SMT 12:45
PROVIDERS: ATTEND Nurse Practitioner Family
DX: R30.0 Dysuria (principal)

== ENCOUNTER → 2020-07-13 | Outpatient (CLI) | payer OTHER ==
[~2020-07-13] MED LIST changes: +GABA-282 PO; -GABA-843 PO; +LISI10TA22 PO; -LISI10TA4 PO
== END ==
LOC: M LAB 13:39
PROVIDERS: ATTEND Family Medicine
DX: M54.30 Sciatica, unspecified side (principal)

== ENCOUNTER 2020-10-04 14:07 | Emergency (ER) | payer OTHER ==
[~2020-10-04] VITALS: Ht 180.3 cm; Wt 77.3 kg
[2020-10-04 14:30] LABS: BASO % 0.5 % (0.0-1.0); EOS # 0.1 10^3/uL (0.0-0.5); EOS % 1.8 % (0.0-3.0); HEMATOCRIT 49.6 % (42.0-52.0); HEMOGLOBIN 16.9 g/dl (13.5-17.5); LYMPH # 2.6 10^3/uL (1.5-5.0); LYMPH % 32.9 % (24.0-44.0); MEAN CORPUSCULAR HEMOGLOBIN 31.1 pg (27.0-33.0); MEAN CORPUSCULAR HGB CONC 34.1 g/dl (32.0-36.5); MEAN CORPUSCULAR VOLUME 91.3 fl (80.0-96.0); MONO % 12.4 % (2.0-8.0); NEUTROPHILS # 4.1 10^3/uL (1.5-8.5); NEUTROPHILS % 52.1 % (36.0-66.0); PLATELET COUNT, AUTOMATED 299 10^3/uL (150-450); RED BLOOD COUNT 5.43 10^6/uL (4.30-6.10); WHITE BLOOD COUNT 7.8 10^3/uL (4.0-10.0)
[2020-10-04] MEDS ORDERED: ASPIRIN 81 MG CHEW TABLET PO ONE (14:35)
[2020-10-04 15:00] LABS: BLOOD UREA NITROGEN 15 MG/DL (7-18); CREATININE FOR GFR 0.95 MG/DL (0.70-1.30); GLOMERULAR FILTRATION RATE > 60.0 (>56); GLUCOSE, FASTING 143 MG/DL (70-100); SODIUM LEVEL 138 MEQ/L (136-145)
[2020-10-04 15:01] LABS: CALCIUM LEVEL 9.3 MG/DL (8.5-10.1); CARBON DIOXIDE LEVEL 25 MEQ/L (21-32); CHLORIDE LEVEL 105 MEQ/L (98-107)
--- NOTE | 2020-10-04 15:03 | REP ---
INDICATION: CHEST PAIN. COMPARISON: Comparison chest x-ray March 20, 2020. TECHNIQUE: Portable sitting AP chest radiograph, two views.. FINDINGS: The lungs are well inflated and free of infiltrate. Pleural angles are sharp. Heart size is normal. Pulmonary vasculature is not increased. EKG monitoring electrodes are seen. IMPRESSION: No active disease. <Electronically signed by Aaron Jasso > 10/04/20 1500
[2020-10-04 15:28] LABS: INR 0.95; PROTHROMBIN TIME 12.9 SECONDS (12.5-14.3)
[2020-10-04 15:31] LABS: D-DIMER QUANT 359.07 ng/ml (<500)
[2020-10-04 16:45] VITALS: BP 144/87
--- NOTE | 2020-10-05 09:22 | ECGEPIP ---
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
--- NOTE | 2020-10-05 09:23 | ECGEPIP ---
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
== END 2020-10-04 17:16 | disposition home or self-care (01) ==
LOC: M ED 14:07
DX: M25.512 Pain in left shoulder (principal); R00.1 Bradycardia, unspecified; I25.10 Atherosclerotic heart disease of native coronary artery without angina pectoris; I10 Essential (primary) hypertension; E78.5 Hyperlipidemia, unspecified; K21.9 Gastro-esophageal reflux disease without esophagitis; M54.5 Low back pain; Z95.5 Presence of coronary angioplasty implant and graft; F17.200 Nicotine dependence, unspecified, uncomplicated; Z79.82 Long term (current) use of aspirin; Z79.899 Other long term (current) drug therapy; Z88.8 Allergy status to other drugs, medicaments and biological substances

== ENCOUNTER → 2020-10-16 | Outpatient (CLI) | payer OTHER ==
--- NOTE | 2020-10-16 20:11 | REPVR ---
PROCEDURE INFORMATION: Exam: MR Lumbar Spine Without Contrast Exam date and time: 10/16/2020 6:26 PM Age: 60 years old Clinical indication: Low back pain; Patient HX: Lbp; Additional info: Ddd lumbar ? stenosis TECHNIQUE: Imaging protocol: Multiplanar magnetic resonance images of the lumbar spine without intravenous contrast. COMPARISON: MRI-Spine, L.S. without con 11/11/2016 8:30 AM FINDINGS: Vertebral body height and AP alignment is preserved. Multilevel disc desiccation with mild disc space narrowing. No evidence of discitis/osteomyelitis. Conus medullaris terminates L1. No epidural fluid collection. Aneurysm of the abdominal aorta measures up to 3.3 cm. L1-L2: Minimal disc bulge and mild bilateral facet joint arthropathy. No significant central or foraminal stenosis. L2-L3: No significant central or foraminal stenosis. L3-L4: Mild facet joint arthropathy without significant central or foraminal stenosis. L4-L5: Mild disc bulge with [id number] facet joint arthropathy and posterior laxity of ligamentum flavum. There is moderate central canal stenosis and mild right foraminal stenosis. L5-S1: Mild disc bulge and mild facet joint arthropathy. No significant central canal stenosis. Mild bilateral foraminal stenosis. IMPRESSION: 1. Degenerative findings as above most prominently at L4-L5 where there is moderate central canal stenosis. 2. Abdominal aortic aneurysm measures up to 3.3 cm. Electronically signed by: Jose Blackwood On 10/16/2020 20:10:15 PM
== END ==
LOC: M RAD 16:22
PROVIDERS: ATTEND Physical Medicine & Rehabilitation
DX: M51.26 Other intervertebral disc displacement, lumbar region (principal)

== ENCOUNTER → 2020-10-23 | Outpatient (REF) | payer OTHER ==
[2020-10-23 17:53] LABS: AMPHETAMINES URINE REFLEX NEGATIVE (NEGATIVE); BARBITURATES URINE REFLEX NEGATIVE (NEGATIVE); BENZODIAZEPINES URINE REFLEX NEGATIVE (NEGATIVE); CANNABINOIDS URINE REFLEX NEGATIVE (NEGATIVE); COCAINE METABOLITE URINE REFLE NEGATIVE (NEGATIVE); METHADONE URINE REFLEX NEGATIVE (NEGATIVE); OPIATES URINE REFLEX NEGATIVE (NEGATIVE); PHENCYCLIDINE URINE REFLEX NEGATIVE (NEGATIVE)
== END ==
LOC: M LAB REF 16:27
PROVIDERS: ATTEND Family Medicine Addiction Medicine
DX: M54.5 Low back pain (principal)

== ENCOUNTER → 2021-03-08 | Outpatient (CLI) | payer OTHER ==
[~2021-03-08] MED LIST changes: -ALBU8.5H; +ALBU8.5H INH; -CARV3.12; +CARV3.12 PO; +DOXY-443; -DOXY100C37; +ECOT81TA5 PO; +GABA-283 PO; -GABA-845 PO; -HYDR-3713; +ISOVUE-370 76% 100ML VIAL As Ordered ONE; +NITR0.4S14 PO; -OMEP-221; +OMEP40CA4 PO; +OMEP40CA5; -OMEP40CA97 PO; +RAMI1CAP22 PO; +TIZA10TA PO; -TIZA4TAB4 PO
[2021-03-08 15:59] LABS: BASO % 0.4 % (0.0-1.0); EOS # 0.2 10^3/uL (0.0-0.5); EOS % 1.7 % (0.0-3.0); HEMATOCRIT 44.9 % (42.0-52.0); HEMOGLOBIN 15.7 g/dl (13.5-17.5); LYMPH # 3.2 10^3/uL (1.5-5.0); LYMPH % 35.6 % (24.0-44.0); MEAN CORPUSCULAR HEMOGLOBIN 31.8 pg (27.0-33.0); MEAN CORPUSCULAR VOLUME 90.9 fl (80.0-96.0); NEUTROPHILS # 4.6 10^3/uL (1.5-8.5); NEUTROPHILS % 51.1 % (36.0-66.0); PLATELET COUNT, AUTOMATED 240 10^3/uL (150-450); RED BLOOD COUNT 4.94 10^6/uL (4.30-6.10); WHITE BLOOD COUNT 8.9 10^3/uL (4.0-10.0)
[2021-03-08 16:32] LABS: ALBUMIN 3.7 GM/DL (3.2-5.2); ALT/SGPT 35 U/L (12-78); AMYLASE 76 U/L (25-115); BILIRUBIN,TOTAL 0.4 MG/DL (0.2-1.0); BLOOD UREA NITROGEN 12 MG/DL (7-18); CALCIUM LEVEL 9.1 MG/DL (8.5-10.1); CARBON DIOXIDE LEVEL 29 MEQ/L (21-32); CHLORIDE LEVEL 109 MEQ/L (98-107); CREATININE FOR GFR 0.87 MG/DL (0.70-1.30); GLOMERULAR FILTRATION RATE > 60.0 (>56); GLUCOSE, FASTING 117 MG/DL (70-100); LIPASE 207 U/L (73-393); POTASSIUM SERUM 3.7 MEQ/L (3.5-5.1); SODIUM LEVEL 143 MEQ/L (136-145); TOTAL PROTEIN 6.7 GM/DL (6.4-8.2)
== END ==
LOC: M LAB 15:08
PROVIDERS: ATTEND Internal Medicine Gastroenterology
DX: R63.4 Abnormal weight loss (principal); K55.1 Chronic vascular disorders of intestine
CPT/HCPCS: 36415; 74174; 80053; 82150; 83690; 85025; Q9967

== ENCOUNTER → 2021-05-31 | Outpatient (CLI) | payer OTHER ==
[~2021-05-31] MED LIST changes: -ISOVUE-370 76% 100ML VIAL As Ordered ONE
== END ==
LOC: M LABSMTC 10:40
PROVIDERS: ATTEND Anesthesiology
DX: Z01.812 Encounter for preprocedural laboratory examination (principal); Z20.822 Contact with and (suspected) exposure to COVID-19

== ENCOUNTER 2021-06-04 10:34 | Day surgery (SDC) | payer OTHER ==
[~2021-06-04] VITALS: Ht 180.3 cm; Wt 68.0 kg
[~2021-06-04 10:34] MED LIST changes: +NS 1,000 ML IV ONE
[2021-06-04] MEDS ORDERED: LIDOCAINE 2% 100MG/5ML SDV (FOR ANES.) As Ordered ONE (12:16)
[2021-06-04] MEDS ORDERED: GLYCOPYRROLATE INJ 0.2 MG/ML 2 ML VIAL As Ordered ONE (12:16)
[2021-06-04] MEDS ORDERED: propofoL 200 MG/20 ML VIAL As Ordered ONE ×2 (12:16→12:54)
[2021-06-04] MEDS ORDERED: PHENYLephrine 500MCG 5ML (100MCG/ML) SYRINGE As Ordered ONE (12:46)
[2021-06-04 13:26] VITALS: BP 109/74
== END 2021-06-04 13:30 | disposition home or self-care (01) ==
LOC: M OPP 10:34
PROVIDERS: ATTEND Internal Medicine Gastroenterology
DX: K57.30 Diverticulosis of large intestine without perforation or abscess without bleeding (principal); K64.8 Other hemorrhoids; R19.4 Change in bowel habit; R63.4 Abnormal weight loss; K22.70 Barrett's esophagus without dysplasia; R12 Heartburn; Z80.0 Family history of malignant neoplasm of digestive organs; Z80.1 Family history of malignant neoplasm of trachea, bronchus and lung; Z79.82 Long term (current) use of aspirin; Z79.891 Long term (current) use of opiate analgesic; Z79.899 Other long term (current) drug therapy; Z88.8 Allergy status to other drugs, medicaments and biological substances; F17.210 Nicotine dependence, cigarettes, uncomplicated; Z95.5 Presence of coronary angioplasty implant and graft
CPT/HCPCS: 43239; 45380; 88305; J2370

== ENCOUNTER 2021-12-01 04:14 | Emergency (ER) | payer OTHER ==
[~2021-12-01] VITALS: Ht 180.3 cm; Wt 71.8 kg
[~2021-12-01 04:14] MED LIST changes: -NS 1,000 ML IV ONE
[2021-12-01 04:15] VITALS: BP 143/89
[2021-12-01] MEDS ORDERED: AMOX875T2 PO (06:28)
[2021-12-01] MEDS ORDERED: AUGMENTIN 875 MG TAB PO ONE (06:30)
[2021-12-01] MEDS ORDERED: ACETAMINOPHEN 500 MG TAB PO ONE (06:30)
[2021-12-01] MEDS ORDERED: BENZOCAINE 20% GEL 9GM TUBE (ANBESOL MAX STRENGTH) TOP ONE (06:30)
== END 2021-12-01 06:50 | disposition home or self-care (01) ==
LOC: M ED 04:14
DX: K04.7 Periapical abscess without sinus (principal); R51.9 Headache, unspecified; I10 Essential (primary) hypertension; I25.2 Old myocardial infarction; F17.200 Nicotine dependence, unspecified, uncomplicated; Z88.8 Allergy status to other drugs, medicaments and biological substances; Z79.899 Other long term (current) drug therapy

== ENCOUNTER 2022-08-23 01:15 | Emergency (ER) | payer OTHER ==
[~2022-08-23] VITALS: Ht 180.3 cm; Wt 71.8 kg
[~2022-08-23 01:15] MED LIST changes: +AMOX875T2 PO; +CLOP75TA99 PO; -PLAV1TAB2 PO
[2022-08-23] MEDS ORDERED: METO1TAB87 (01:28)
[2022-08-23] MEDS ORDERED: PREG300C (01:28)
[2022-08-23] MEDS ORDERED: GABA800T4 (01:28)
[2022-08-23] MEDS ORDERED: ONDANSETRON 4MG 2ML VIAL IV ONE (02:00)
[2022-08-23] MEDS ORDERED: LIDOCAINE 5% (LIDODERM) PATCH TD ONE (02:00)
[2022-08-23] MEDS ORDERED: MORPHINE 4 MG/ML 1ML VIAL IV ONE (02:00)
[2022-08-23] MEDS ORDERED: MORPHINE 2 MG/ML 1ML VIAL IV ONE (04:20)
[2022-08-23] MEDS ORDERED: PERCOCET 5MG/325MG TAB PO ONE (04:20)
[2022-08-23] MEDS ORDERED: ISOVUE-370 76% 100ML VIAL As Ordered ONE (04:33)
[2022-08-23 06:15] VITALS: BP 131/79
[2022-08-23] MEDS ORDERED: PERC5TAB12 PO (06:27)
[2022-08-23] MEDS ORDERED: LIDO5DIS41 TD (06:27)
== END 2022-08-23 07:06 | disposition home or self-care (01) ==
LOC: M ED 01:15 → EDBD 01:15 → M ED 07:06
DX: S22.31XA Fracture of one rib, right side, initial encounter for closed fracture (principal); W01.0XXA Fall on same level from slipping, tripping and stumbling without subsequent striking against object, initial encounter; Y92.410 Unspecified street and highway as the place of occurrence of the external cause; Y93.01 Activity, walking, marching and hiking; Y99.9 Unspecified external cause status; I10 Essential (primary) hypertension; I70.90 Unspecified atherosclerosis; J44.9 Chronic obstructive pulmonary disease, unspecified; I25.2 Old myocardial infarction; Z88.8 Allergy status to other drugs, medicaments and biological substances; Z79.82 Long term (current) use of aspirin; Z79.51 Long term (current) use of inhaled steroids; Z79.899 Other long term (current) drug therapy
CPT/HCPCS: 71100; 71275; 80047; 94010; 96374; 96375; 96376; 99284; J2270; J2405

== ENCOUNTER → 2023-01-19 | Outpatient (CLI) | payer OTHER ==
[~2023-01-19] MED LIST changes: -GABA-283 PO; +GABA-284 PO; +GABA800T4; +LIDO5DIS41 TD; +METO1TAB87; +PERC5TAB12 PO; +PREG300C
[2023-01-19 18:34] LABS: PLATELET COUNT, AUTOMATED 290 10^3/uL (150-450)
[2023-01-19 18:44] LABS: INR 0.9; PROTHROMBIN TIME 12.3 SECONDS (12.5-14.5)
[2023-01-19 18:45] LABS: PARTIAL THROMBOPLASTIN TIME 25.3 SECONDS (24.8-34.2)
== END ==
LOC: M LAB 17:15
PROVIDERS: ATTEND Physician Assistant
DX: Z01.818 Encounter for other preprocedural examination (principal)

== ENCOUNTER → 2023-05-19 | Outpatient (REF) | payer OTHER ==
[~2023-05-19] MED LIST changes: -PREG300C; +PREG300C2
[2023-05-19 12:17] LABS: ALBUMIN 3.7 G/DL (3.2-5.2); ALKALINE PHOSPHATASE 120 U/L (46-116); ALT/SGPT 10 U/L (7.0-40); AST/SGOT < 8 U/L (<34); BILIRUBIN,TOTAL 0.5 MG/DL (0.3-1.2); BLOOD UREA NITROGEN 9 MG/DL (9-23); CALCIUM LEVEL 8.9 MG/DL (8.3-10.6); CARBON DIOXIDE LEVEL 29 MMOL/L (20-31); CHLORIDE LEVEL 106 MMOL/L (98-107); CHOLESTEROL LEVEL 249 MG/DL (<200); CHOLESTEROL RISK RATIO 7.68 (<5); CREATININE FOR GFR 0.89 MG/DL (0.70-1.30); FREE T4 0.98 NG/DL (0.89-1.76); GLOMERULAR FILTRATION RATE > 60.0 (>49); GLUCOSE, FASTING 107 MG/DL (74-106); HDL CHOLESTEROL 32.4 MG/DL (>40); LDL CHOLESTEROL 180.2 MG/DL (<100); NON-HDL-C 216.6 MG/DL; POTASSIUM SERUM 3.9 MMOL/L (3.5-5.1); SODIUM LEVEL 139 MMOL/L (136-145); THYROID STIMULATING HORMONE 4.681 uIU/ML (0.55-4.78); TOTAL PROTEIN 6.8 G/DL (5.7-8.2); TRIGLYCERIDES LEVEL 182 MG/DL (<150)
== END ==
LOC: M LAB REF 11:50
PROVIDERS: ATTEND Family Medicine Addiction Medicine
DX: I25.10 Atherosclerotic heart disease of native coronary artery without angina pectoris (principal); R33.9 Retention of urine, unspecified

== ENCOUNTER → 2023-07-07 | Outpatient (REF) | payer OTHER | LOC: M SMT PRO 12:26 | PROVIDERS: ATTEND Urology | DX: C61 Malignant neoplasm of prostate (principal) ==

== ENCOUNTER → 2023-07-15 | Outpatient (CLI) | payer OTHER ==
[2023-07-15 15:46] LABS: BLOOD UREA NITROGEN 9 MG/DL (9-23); CARBON DIOXIDE LEVEL 27 MMOL/L (20-31); CHLORIDE LEVEL 108 MMOL/L (98-107); CREATININE FOR GFR 0.86 MG/DL (0.70-1.30); GLOMERULAR FILTRATION RATE > 60.0 (>49); GLUCOSE, FASTING 103 MG/DL (74-106); POTASSIUM SERUM 4.3 MMOL/L (3.5-5.1); SODIUM LEVEL 136 MMOL/L (136-145)
== END ==
LOC: M LAB 14:58
PROVIDERS: ATTEND Urology
DX: C61 Malignant neoplasm of prostate (principal)

== ENCOUNTER → 2023-07-19 | Outpatient (REF) | payer OTHER ==
[2023-07-19 15:18] LABS: BASO % 0.3 % (0.0-1.0); EOS # 0.2 10^3/uL (0.0-0.5); EOS % 1.6 % (0.0-3.0); HEMATOCRIT 51.2 % (42.0-52.0); HEMOGLOBIN 17.1 g/dl (13.5-17.5); LYMPH # 3.6 10^3/uL (1.5-5.0); LYMPH % 37.1 % (24.0-44.0); MEAN CORPUSCULAR HEMOGLOBIN 30.8 pg (27.0-33.0); MEAN CORPUSCULAR HGB CONC 33.4 g/dl (32.0-36.5); MEAN CORPUSCULAR VOLUME 92.3 fl (80.0-96.0); MONO # 1.3 10^3/uL (0.0-0.8); MONO % 13.1 % (2.0-8.0); NEUTROPHILS # 4.6 10^3/uL (1.5-8.5); NEUTROPHILS % 47.5 % (36.0-66.0); PLATELET COUNT, AUTOMATED 390 10^3/uL (150-450); RED BLOOD COUNT 5.55 10^6/uL (4.30-6.10); WHITE BLOOD COUNT 9.6 10^3/uL (4.0-10.0)
[2023-07-19 15:49] LABS: ALBUMIN 4.2 G/DL (3.2-5.2); ALKALINE PHOSPHATASE 159 U/L (46-116); ALT/SGPT 31 U/L (7.0-40); AST/SGOT 16 U/L (<34); BILIRUBIN,TOTAL 0.4 MG/DL (0.3-1.2); BLOOD UREA NITROGEN 11 MG/DL (9-23); CALCIUM LEVEL 9.7 MG/DL (8.3-10.6); CARBON DIOXIDE LEVEL 28 MMOL/L (20-31); CHLORIDE LEVEL 105 MMOL/L (98-107); CREATININE FOR GFR 0.92 MG/DL (0.70-1.30); GLOMERULAR FILTRATION RATE > 60.0 (>49); GLUCOSE, FASTING 102 MG/DL (74-106); POTASSIUM SERUM 4.7 MMOL/L (3.5-5.1); SODIUM LEVEL 141 MMOL/L (136-145); TOTAL PROTEIN 7.5 G/DL (5.7-8.2)
== END ==
LOC: M LAB REF 13:30
PROVIDERS: ATTEND Family Medicine Addiction Medicine
DX: R42 Dizziness and giddiness (principal)

== ENCOUNTER → 2023-07-20 | Outpatient (CLI) | payer OTHER | LOC: M PLAIMG 09:06 | PROVIDERS: ATTEND Family Medicine Addiction Medicine | DX: R11.2 Nausea with vomiting, unspecified (principal) ==

== ENCOUNTER → 2023-08-24 | Outpatient (CLI) | payer OTHER ==
[~2023-08-24] MED LIST changes: +ISOVUE-370 76% 100ML VIAL As Ordered ONE
== END ==
LOC: M RAD 08:03
PROVIDERS: ATTEND Urology
DX: C61 Malignant neoplasm of prostate (principal)
CPT/HCPCS: 74177; 78306; A9503; Q9967

== ENCOUNTER → 2023-09-08 | Outpatient (CLI) | payer OTHER ==
[~2023-09-08] MED LIST changes: +BICA50TA9 PO; -ISOVUE-370 76% 100ML VIAL As Ordered ONE; +NITR0.4S14 SL; +TAMS1CAP17 PO
== END ==
LOC: M ONCR 13:17
PROVIDERS: ATTEND General Practice
DX: C61 Malignant neoplasm of prostate (principal); F17.210 Nicotine dependence, cigarettes, uncomplicated; R35.0 Frequency of micturition; R35.1 Nocturia; Z79.51 Long term (current) use of inhaled steroids; Z79.82 Long term (current) use of aspirin; Z79.899 Other long term (current) drug therapy; Z80.0 Family history of malignant neoplasm of digestive organs; Z80.1 Family history of malignant neoplasm of trachea, bronchus and lung; Z88.8 Allergy status to other drugs, medicaments and biological substances

== ENCOUNTER → 2023-10-04 | Outpatient (CLI) | payer OTHER ==
[~2023-10-04] VITALS: Ht 180.3 cm; Wt 74.1 kg
[~2023-10-04] MED LIST changes: +AMOX500C PO; +CIPR750T2 PO; +FLEEENE12 PR; +LORA1TAB23 PO
[2023-10-04 13:40] VITALS: BP 102/69; TEMP 98.2; O2SAT 99
[2023-10-04] MEDS: LIDOCAINE 2% MDV 20ML VIAL XX ONE (13:51)
[2023-10-04 14:22] VITALS: BP 134/79; TEMP 97; O2SAT 98
== END ==
LOC: M ONCR 13:14
PROVIDERS: ATTEND General Practice
DX: C61 Malignant neoplasm of prostate (principal)
CPT/HCPCS: 55874; 55876; A4648; C1889

== ENCOUNTER → 2023-10-17 | Outpatient (RCR) | payer OTHER ==
[~2023-10-17] MED LIST changes: +DOXY-323; -DOXY-443; -RAMI1CAP22; -RAMI1CAP22 PO; +RAMI2.5C42; +RAMI2.5C42 PO
== END ==
LOC: M ONCR 09:48
PROVIDERS: ATTEND General Practice
DX: Z51.0 Encounter for antineoplastic radiation therapy (principal); C61 Malignant neoplasm of prostate

== ENCOUNTER → 2023-11-17 | Outpatient (RCR) | payer OTHER ==
[~2023-11-17] MED LIST changes: +PYRI1TAB5 PO
== END ==
LOC: M ONCR 10-18 10:20 → EDSTATUS 10-20 12:50 → M ONCR 11-09 08:54
PROVIDERS: ATTEND General Practice
DX: Z51.0 Encounter for antineoplastic radiation therapy (principal); C61 Malignant neoplasm of prostate

== ENCOUNTER 2023-12-15 09:26 | Outpatient (RCR) | payer OTHER ==
[~2023-12-15 09:26] MED LIST changes: +BICA50TA4 PO; -BICA50TA9 PO; +NICO1DIS11 TOP; +RELU120T PO
== END 2023-12-17 ==
LOC: M ONCR 09:26
PROVIDERS: ATTEND General Practice
DX: Z51.0 Encounter for antineoplastic radiation therapy (principal); C61 Malignant neoplasm of prostate

== ENCOUNTER 2023-12-20 08:55 | Outpatient (RCR) | payer OTHER | END 2024-01-17 | LOC: M ONCR 08:55 | PROVIDERS: ATTEND General Practice | DX: Z51.0 Encounter for antineoplastic radiation therapy (principal); C61 Malignant neoplasm of prostate ==

== ENCOUNTER 2024-03-12 18:26 | Emergency (ER) | payer OTHER ==
[~2024-03-12] VITALS: Ht 180.3 cm; Wt 69.7 kg
[~2024-03-12 18:26] MED LIST changes: +GABA-1635; -GABA800T4; +SILD20TA50 PO
[2024-03-12] MEDS: NS 1,000 ML IV ONE (20:14)
[2024-03-12 20:41] LABS: BASO % 0.5 % (0.0-1.0); EOS # 0.1 10^3/uL (0.0-0.5); EOS % 1.5 % (0.0-3.0); HEMATOCRIT 44.1 % (42.0-52.0); HEMOGLOBIN 15.7 g/dl (13.5-17.5); LYMPH # 1.7 10^3/uL (1.5-5.0); LYMPH % 22.5 % (24.0-44.0); MEAN CORPUSCULAR HEMOGLOBIN 31.7 pg (27.0-33.0); MEAN CORPUSCULAR HGB CONC 35.6 g/dl (32.0-36.5); MEAN CORPUSCULAR VOLUME 88.9 fl (80.0-96.0); MONO % 13.2 % (2.0-8.0); NEUTROPHILS # 4.7 10^3/uL (1.5-8.5); NEUTROPHILS % 61.9 % (36.0-66.0); PLATELET COUNT, AUTOMATED 308 10^3/uL (150-450); RED BLOOD COUNT 4.96 10^6/uL (4.30-6.10); WHITE BLOOD COUNT 7.6 10^3/uL (4.0-10.0)
[2024-03-12 20:51] LABS: LIPASE 61 U/L (12-53)
[2024-03-12 20:53] LABS: ALBUMIN 3.8 G/DL (3.2-5.2); ALKALINE PHOSPHATASE 129 U/L (46-116); ALT/SGPT 12 U/L (7.0-40); AST/SGOT < 8 U/L (<34); BILIRUBIN,DIRECT 0.1 MG/DL (<0.4); BILIRUBIN,TOTAL 0.4 MG/DL (0.3-1.2); CK-MB VALUE MASS < 1.0 NG/ML (<3.6)
[2024-03-12 20:57] LABS: CPK CREATINE PHOSPHOKINASE 32 U/L (46-171); MB/CK RELATIVE INDEX 3.12 (< OR =4)
[2024-03-12 22:58] VITALS: BP 132/87; TEMP 98.4; O2SAT 98
== END 2024-03-12 23:00 | disposition home or self-care (01) ==
LOC: M ED 18:26
DX: I95.1 Orthostatic hypotension (principal); R63.8 Other symptoms and signs concerning food and fluid intake; I45.81 Long QT syndrome; J44.9 Chronic obstructive pulmonary disease, unspecified; K21.9 Gastro-esophageal reflux disease without esophagitis; Z85.46 Personal history of malignant neoplasm of prostate; F17.210 Nicotine dependence, cigarettes, uncomplicated; Z88.8 Allergy status to other drugs, medicaments and biological substances; Z79.1 Long term (current) use of non-steroidal anti-inflammatories (NSAID); Z79.2 Long term (current) use of antibiotics; Z79.51 Long term (current) use of inhaled steroids; Z79.899 Other long term (current) drug therapy

== ENCOUNTER → 2024-03-21 | Outpatient (CLI) | payer OTHER ==
[~2024-03-21] MED LIST changes: -DOXY-323; +DOXY-441; +GABA-1172 PO; -GABA-282 PO
[2024-03-21 09:49] LABS: PROSTATIC SPECIFIC AG MONITOR 0.07 NG/ML (< 4.00)
== END ==
LOC: M ONCR 08:36
PROVIDERS: ATTEND General Practice
DX: C61 Malignant neoplasm of prostate (principal); F17.210 Nicotine dependence, cigarettes, uncomplicated; Z88.8 Allergy status to other drugs, medicaments and biological substances; Z79.818 Long term (current) use of other agents affecting estrogen receptors and estrogen levels; Z79.82 Long term (current) use of aspirin; Z79.01 Long term (current) use of anticoagulants; Z79.899 Other long term (current) drug therapy; Z92.3 Personal history of irradiation
CPT/HCPCS: 36415; 84153; 84403; G0463

== ENCOUNTER → 2024-06-21 | Outpatient (CLI) | payer OTHER ==
[~2024-06-21] MED LIST changes: +MIRT1TAB15 PO; +NICO4LOZ8 MT; +SILD25TA2 PO; +TADA10TA PO
== END ==
LOC: M ONCR 08:33
PROVIDERS: ATTEND General Practice
DX: C61 Malignant neoplasm of prostate (principal); N52.35 Erectile dysfunction following radiation therapy; Z88.8 Allergy status to other drugs, medicaments and biological substances; Z79.899 Other long term (current) drug therapy; Z92.29 Personal history of other drug therapy; Z92.3 Personal history of irradiation
CPT/HCPCS: 36415; 84153; G0463

== ENCOUNTER → 2024-06-28 | Outpatient (CLI) | payer OTHER ==
[2024-06-28 09:52] LABS: ALBUMIN 3.6 G/DL (3.2-5.2); ALKALINE PHOSPHATASE 106 U/L (40-129); ALT/SGPT 17 U/L (7.0-40); AST/SGOT 17 U/L (<34); BILIRUBIN,TOTAL 0.3 MG/DL (0.3-1.2); BLOOD UREA NITROGEN 13 MG/DL (9-23); CALCIUM LEVEL 9.3 MG/DL (8.3-10.6); CARBON DIOXIDE LEVEL 30 MMOL/L (20-31); CHLORIDE LEVEL 105 MMOL/L (98-107); CHOLESTEROL LEVEL 222 MG/DL (<200); CHOLESTEROL RISK RATIO 5.93 (<5); CREATININE FOR GFR 0.67 MG/DL (0.70-1.30); GLOMERULAR FILTRATION RATE > 60.0 (>49); GLUCOSE, FASTING 116 MG/DL (74-106); HDL CHOLESTEROL 37.4 MG/DL (>40); LDL CHOLESTEROL 157.6 MG/DL (<100); NON-HDL-C 184.6 MG/DL; POTASSIUM SERUM 3.9 MMOL/L (3.5-5.1); SODIUM LEVEL 141 MMOL/L (136-145); TOTAL PROTEIN 6.7 G/DL (5.7-8.2); TRIGLYCERIDES LEVEL 135 MG/DL (<150)
== END ==
LOC: M LAB 08:16
PROVIDERS: ATTEND Internal Medicine Cardiovascular Disease
DX: I10 Essential (primary) hypertension (principal)

== ENCOUNTER → 2024-06-28 | Outpatient (CLI) | payer OTHER ==
[2024-06-28 09:37] LABS: PLATELET COUNT, AUTOMATED 274 10^3/uL (150-450)
[2024-06-28 09:58] LABS: INR 0.89; PARTIAL THROMBOPLASTIN TIME 27.1 SECONDS (24.8-34.2); PROTHROMBIN TIME 12.3 SECONDS (12.5-14.5)
== END ==
LOC: M LAB 08:18
PROVIDERS: ATTEND Physician Assistant
DX: Z01.818 Encounter for other preprocedural examination (principal)

== ENCOUNTER → 2024-09-06 | Day surgery (SDC) | payer OTHER ==
[~2024-09-06] VITALS: Ht 180.3 cm; Wt 71.2 kg
[~2024-09-06] MED LIST changes: +ASPI-531 PO; -GABA-1635; +GABA-1635 PO; +LIDOCAINE 2% 100MG/5ML SDV (FOR ANES.) As Ordered ONE; +PANT40TA29 PO; -PREG300C2; +PREG300C2 PO; +SILD100T PO; +fentaNYL 100 MCG/2 ML INJECTION As Ordered ONE; +propofoL 200 MG/20 ML VIAL As Ordered ONE
[2024-09-06 09:45] VITALS: BP 138/85; TEMP 97.7; O2SAT 97
== END | disposition home or self-care (01) ==
LOC: M OPP 08:27
PROVIDERS: ATTEND Surgery
DX: K21.9 Gastro-esophageal reflux disease without esophagitis (principal); Z53.09 Procedure and treatment not carried out because of other contraindication

== ENCOUNTER → 2025-03-12 | Outpatient (REF) | payer OTHER ==
[~2025-03-12] MED LIST changes: -AMBI10TA PO; -IBUP-1022 PO; +IBUP600T42 PO; +LIDO1ADH93 TD; -LIDO5DIS41 TD; -LIDOCAINE 2% 100MG/5ML SDV (FOR ANES.) As Ordered ONE; +ZOLP-533 PO; +ZOLP10TA11 PO; -ZOLP10TA2 PO; -fentaNYL 100 MCG/2 ML INJECTION As Ordered ONE; -propofoL 200 MG/20 ML VIAL As Ordered ONE
== END ==
LOC: M LAB REF 11:35
PROVIDERS: ATTEND Physician Assistant
DX: B34.9 Viral infection, unspecified (principal)

== ENCOUNTER → 2025-04-11 | Outpatient (CLI) | payer OTHER ==
[2025-04-11 15:29] LABS: APPEARANCE, URINE CLEAR (CLEAR); BACTERIA, URINE AUTO NEGATIVE (NEGATIVE); BILIRUBIN, URINE AUTO NEGATIVE (NEGATIVE); BLOOD, URINE BLOOD NEGATIVE (NEGATIVE); GLUCOSE, URINE (UA) AUTO NEGATIVE (NEGATIVE); KETONE, URINE AUTO NEGATIVE (NEGATIVE); LEUKOCYTE ESTERASE, URINE AUTO NEGATIVE (NEGATIVE); NITRITE, URINE AUTO NEGATIVE (NEGATIVE); PROTEIN, URINE AUTO NEGATIVE (NEGATIVE); RBC, URINE AUTO 1 /HPF (0-3); SPECIFIC GRAVITY URINE AUTO 1.012 (1.002-1.035); SQUAMOUS EPITHELIAL CELL UR AU 0 /HPF (0-6); UROBILINOGEN, URINE AUTO 0.2 mg/dL (0.0-2.0); WBC, URINE AUTO 1 /HPF (0-3)
== END ==
LOC: M ONCR 14:51
PROVIDERS: ATTEND General Practice
DX: C61 Malignant neoplasm of prostate (principal); R10.24 Suprapubic pain; F17.210 Nicotine dependence, cigarettes, uncomplicated; Z92.29 Personal history of other drug therapy; Z92.3 Personal history of irradiation; Z88.8 Allergy status to other drugs, medicaments and biological substances; Z79.02 Long term (current) use of antithrombotics/antiplatelets; Z79.82 Long term (current) use of aspirin; Z79.899 Other long term (current) drug therapy

== ENCOUNTER → 2025-04-22 | Outpatient (CLI) | payer OTHER | LOC: M RAD 13:09 | PROVIDERS: ATTEND General Practice | DX: C61 Malignant neoplasm of prostate (principal); R10.24 Suprapubic pain; K57.90 Diverticulosis of intestine, part unspecified, without perforation or abscess without bleeding; R93.49 Abnormal radiologic findings on diagnostic imaging of other urinary organs; I70.0 Atherosclerosis of aorta; I71.43 Infrarenal abdominal aortic aneurysm, without rupture ==